=== PATIENT | female | born 1995 | race Caucasian/White ===

== ENCOUNTER 2019-09-24 01:12 | Emergency (ER) | payer BC, OTHER ==
--- OUTSIDE RECORDS SUMMARY | 2019-09-24 01:14 | XMS REPORT ---
:1995 [facility] Organization [facility] Address [address] [place] [address] Dr. Lay [address] [place] [address] Care Team Providers Name Role Phone Unavailable Unavailable Unavailable Problems This patient has no known problems. Allergies, Adverse Reactions, Alerts This patient has no known allergies or adverse reactions. Medications This patient has no known medications.
--- OUTSIDE RECORDS SUMMARY | 2019-09-24 01:15 | XMS REPORT | Summary of Care ---
:1995 Author Organization [facility] Address [address] [place] [address] Care Team Providers Name Role Phone Angélica Tinoco MD Primary Care Provider Reason for Visit Reason Comments New Medication Encounter Details Date Type Department Care Team Description 06/09/[address] [facility] Women's Amanda Mata, New Medication [facility]- [address], [facility] [address] [place] [address] [place] [address] [place] [phone] Allergies Active Allergy Reactions Severity Noted Date Comments Adhesive Tape-Silicones Rash Medium 10/01/2018 Amoxicillin Hives, Swelling 11/10/2015 Latex Rash 03/01/2016 Sulfa (Sulfonamide Antibiotics) Rash, Swelling 03/08/2016 documented as of this encounter (statuses as of 06/09/2019) Medications Medication Sig Dispensed Refills Start Date End Date Status [id number] Take 1 Dose by 30 Each 6 08/16/2018 Active carb,svs-MT-udo-dha mouth daily. (CITRANATAL ASSURE) 35 mg iron-1 mg -50 mg-300 mg combo pack acetaminophen (TYLENOL) Take by mouth. 0 Active 325 mg Cap fluconazole (DIFLUCAN) Take 1 tablet 1 tablet 0 06/07/2019 Active 200 mg by mouth daily. tabletIndications: Yeast vaginitis metroNIDAZOLE (FLAGYL) Take 1 tablet 14 tablet 0 06/07/2019 06/14/2019 Active 500 mg by mouth 2 tabletIndications: BV (two) times (bacterial vaginosis) daily for 7 days. metroNIDAZOLE 500 mg Take 1 tablet 14 tablet 0 06/09/2019 Active tabletIndications: BV by mouth every (bacterial vaginosis) 12 (twelve) hours. fluconazole 200 mg Take 1 tablet 1 tablet 0 06/09/2019 06/10/2019 Active tabletIndications: by mouth daily Yeast vaginitis for 1 day. documented as of this encounter (statuses as of 06/09/2019) Active Problems Problem Noted Date Morbid obesity with body mass index of 40.0-49.9 03/13/2019 Complete miscarriage 08/23/2018 Thyroid antibody positive 07/16/2018 Overview: Thyroglobulin antibody positive 07/2018 B12 deficiency 07/16/2018 Low HDL (under 40) 07/16/2018 Chronic back pain 06/17/2018 Bilateral hip pain 06/17/2018 Obesity (BMI 30-39.9) 06/17/2018 Penicillin allergy 09/27/2016 Latex allergy status 09/27/2016 Immune to rubella 04/05/2016 Immune to varicella 04/05/2016 Atypical squamous cells of undetermined significance (ASCUS) on 11/22/2015 Papanicolaou smear of cervix Overview: Repeat 1 year History of cervical dysplasia 11/13/2015 Estimated Date of Delivery Comments Yes 06/19/2019 Based on Ultrasound documented as of this encounter (statuses as of 06/09/2019) Resolved Problems Problem Noted Date Resolved Date Liveborn infant, of [place] , born in hospital by 09/29/201605/02 vaginal delivery (spontaneous vaginal delivery) 09/29/2016 05/02/2017 Retained placenta w/o hemorrhage, delivered, current 09/29/2016 05/02/2017 hospitalization Threatened labor at term 09/28/2016 11/03/2016 Premature rupture of membranes (PROM), onset of labor within 09/28/201605/02 24 hours, antepartum, full term Supervision of high-risk with history of , 09/27/201611/03 third trimester Vaginal yeast infection 09/27/2016 06/17/2018 Group B Streptococcus carrier state affecting 09/21/2016 11/03/2016 Headache in , antepartum 08/12/2016 11/03/2016 30 weeks gestation of 08/12/2016 09/20/2016 Bacterial vaginosis 06/23/2016 06/17/2018 Vaginal discharge during in second trimester 06/23/2016 11/03/2016 Supervision of high-risk with history of , 05/31/201609/27 second trimester Supervision of high-risk with history of , 03/01/201605/31 first trimester Breast tenderness 11/13/2015 06/17/2018 Obesity affecting 11/10/2015 11/03/2016 High risk , antepartum 11/10/2015 11/03/2016 documented as of this encounter (statuses as of 06/09/2019) Immunizations Name Administration Dates Next Due Influenza Virus Vaccine 09/10/2015 Influenza Virus Vaccine Quad IM 3+ YRS 07/26/2016 TDAP (ADACEL) VACCINE 04/03/2019 Td 06/10/2010 Tdap 07/26/2016 documented as of this encounter Social History Tobacco Use Types Packs/Day Years Used Date Never Smoker Smokeless Tobacco: Never Used Alcohol Use Drinks/Week oz/Week Comments No 0 Standard drinks or equivalent 0.0 Estimated Date of Delivery Comments Yes 06/19/2019 Based on Ultrasound Sex Assigned at Date Recorded Not on file Job Start Date Occupation Industry Not on file Not on file Not on file Travel History Travel Start Travel End No recent travel history available. documented as of this encounter Last Filed Vital Signs Not on filedocumented in this encounter Plan of Treatment Date Type Specialty Care Team Description 06/12/2019 Routine Obstetrics & Tinoco, Angélica Pineda MD Visit Gynecology [address] [place] [address] [place] [address] [phone] Health Maintenance Due Date Last Done Comments HPV VACCINES (1 - Female 2008 3-dose series) INFLUENZA VACCINE 07/06/2019 06/30/2018, 07/26/2016, 09/10/2015 PAP SMEAR 11/03/2019 11/03/2016, 11/10/2015 DTaP,Tdap,and Td Vaccines (4 04/03/2029 04/03/2019, - Td) 07/26/2016, 06/10/2010 PNEUMOCOCCAL 0-64 YEARS Aged Out No longer eligible based COMBINED SERIES on patient's age to complete this topic documented as of this encounter Results Not on filedocumented in this encounter Visit Diagnoses Diagnosis BV (bacterial vaginosis) - Primary Vaginitis and vulvovaginitis, unspecified Yeast vaginitis Candidiasis of vulva and vagina documented in this encounter Insurance Payer Benefit Plan Subscriber ID Effective Dates Phone Address Type / Group [facility] [id number] 2019-Jose [phone] [address] PPO/POS - OUT OF nt 87 [id number] [place] [address] [facility] [id number] 2018-Pauline t [facility] [id number] 2016-Presen t documented as of this encounter
--- OUTSIDE RECORDS SUMMARY | 2019-09-24 01:15 | XMS REPORT | Summary of Care ---
:1995 Author Organization [facility] Address [address] [place] [address] Care Team Providers Name Role Phone Angélica Tinoco MD Primary Care Provider Reason for Visit Reason Comments Rx Concern/Question Encounter Details Date Type Department Care Team Description 06/06/2019 Telephone [facility] Women's Angélica Tinoco MD Rx Concern/Question Healthcare[address] [place] [address] [place] [address] [phone] Allergies Active Allergy Reactions Severity Noted Date Comments Adhesive Tape-Silicones Rash Medium 10/01/2018 Amoxicillin Hives, Swelling 11/10/2015 Latex Rash 03/01/2016 Sulfa (Sulfonamide Antibiotics) Rash, Swelling 03/08/2016 documented as of this encounter (statuses as of 06/06/2019) Medications Medication Sig Dispensed Refills Start Date End Date Status [id number]-[id number] Take 1 Dose by 30 Each 6 08/16/2018 Active carb,kas-IY-jzk-dha mouth daily. (CITRANATAL ASSURE) 35 mg iron-1 mg -50 mg-300 mg combo pack acetaminophen (TYLENOL) Take by mouth. 0 Active 325 mg Cap documented as of this encounter (statuses as of 06/06/2019) Active Problems Problem Noted Date Morbid obesity [...] as of this encounter (statuses as of 06/06/2019) Resolved Problems Problem Noted Date Resolved Date [...] as of this encounter (statuses as of 06/06/2019) Immunizations Name Administration Dates Next Due Influenza [...] & Tinoco, Angélica Pineda MD Visit Gynecology [address] [place] [address] DR. Obrien [place], [place] [phone] Health Maintenance Due Date Last Done Comments [...] Results Not on filedocumented in this encounter Insurance Payer Benefit Plan Subscriber ID Effective Dates Phone Address Type / Group [facility] [id number] 2019-Jose [phone] [address] PPO/POS - OUT OF nt 87 [id number] [place] [address] [place] [id number] 2018-Presen t [place] [id number] 2016-Presen t documented as of this encounter
--- OUTSIDE RECORDS SUMMARY | 2019-09-24 01:15 | XMS REPORT | Summary of Care ---
:[address] [facility] Address [address] [place] [address] Care Team Providers Name Role Phone Angélica Tinoco MD Primary Care Provider Reason for Visit Reason Comments ROUTINE VISIT Encounter Details Date Type Department Care Team Description 06/05/2019 Routine [facility] Women's Angélica Tinoco MD High-risk in third trimester (Primary Dx); Visit Healthcare- [address] [place] [address] 38 weeks gestation of ; Teri NORTON Vaginal discharge; [address] [place] [address], [place] [address] BV (bacterial vaginosis); [address] [place], [place] [phone] Allergies Active Allergy Reactions Severity Noted Date Comments Adhesive Tape-Silicones Rash Medium 10/01/2018 Amoxicillin Hives, Swelling 11/10/2015 Latex Rash 03/01/2016 Sulfa (Sulfonamide Antibiotics) Rash, Swelling 03/08/2016 documented as of this encounter (statuses as of 06/07/2019) Medications Medication Sig Dispensed Refills Start Date End Date Status [id number]-rnxt Take 1 Dose by 30 Each 6 08/16/2018 Active carb,ujx-JV-cis-dha mouth daily. (CITRANATAL ASSURE) 35 mg iron-1 [...] times (bacterial vaginosis) daily for 7 days. documented as of this encounter (statuses as of 06/07/2019) Active Problems Problem Noted Date Morbid obesity [...] as of this encounter (statuses as of 06/07/2019) Resolved Problems Problem Noted Date Resolved Date [...] as of this encounter (statuses as of 06/07/2019) Immunizations Name Administration Dates Next Due Influenza [...] of this encounter Last Filed Vital Signs Vital Sign Reading Time Taken Comments Blood Pressure 130/75 06/05/2019 2:40 PM CDT Pulse 99 06/05/2019 2:40 PM CDT Temperature 36.9 C (98.4 F) 06/05/2019 2:40 PM CDT Respiratory Rate 18 06/05/2019 2:40 PM CDT Oxygen Saturation - - Inhaled Oxygen Concentration - - Weight 94.3 kg (208 lb) 06/05/2019 2:40 PM CDT Height 152.4 cm (5') 06/05/2019 2:40 PM CDT Body Mass Index 40.62 06/05/2019 2:40 PM CDT documented in this encounter Progress Notes Angélica Tinoco MD - 06/05/2019 2:00 PM CDT Chief complaint: Chief Complaint Patient presents with ROUTINE VISIT HPI Denies contractions, vaginal bleeding, dysuria, or PIH symptoms. + active FM. ??? Vaginal discharge versus LOF. Short was wet this morning. Histories OB History Para Term AB Living 4 1 1 0 2 1 SAB TAB Ectopic Multiple Live Births 1 0 0 0 1 # Outcome Date GA Lbr Julius/2nd Weight Sex Delivery Anes PTL Lv 4 Current 3 SAB 08/16/18 2 Term 09/28/16 37w3d 3090 g M VAGINAL None N IGOR Complications: Retained placenta 1 AB 11/2015 7w0d Past Medical History: Diagnosis Date Allergic rhinitis Anxiety B12 deficiency 07/16/2018 Bacterial vaginosis 06/23/2016 Bilateral hip pain 06/17/2018 Chronic back pain 06/17/2018 History of UTI Low HDL (under 40) 07/16/2018 Obesity (BMI 30-39.9) 06/17/2018 Pap smear abnormality of cervix Right lower quadrant pain 11/13/2017 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 07/16/2018 Thyroglobulin antibody positive Thyroid antibody positive 07/16/2018 Thyroid disease Family History Problem Relation Age of Onset Thyroid Mother thyroid nodule Allergies Mother Arthritis Maternal Grandmother Heart Maternal Grandmother Hypertension Maternal Grandmother Other - see comments Maternal Grandmother Thyroid Diabetes Paternal Grandmother High cholesterol Paternal Grandmother Hypertension Paternal Grandmother Other - see comments Paternal Grandmother COPD Other - see comments Father Diverticulitis Asthma NoFHx defects NoFHx Breast Cancer NoFHx Colon Cancer NoFHx Ovarian Cancer NoFHx Uterine Cancer NoFHx Cancer NoFHx Depression NoFHx Genetic NoFHx Mental retardation NoFHx Neurological NoFHx Osteoporosis NoFHx Psychiatry NoFHx Family Status Relation Name Status Mo Alive MGMo PGMo Fa Alive NoFHx (Not Specified) Past Surgical History: Procedure Laterality Date CONIZATION CERVIX,LOOP ELECTRD DILATION AND CURETTAGE (SHX) 11/2015 Social History Socioeconomic History Marital status: Spouse name: Not on file Number of children: 0 Years of education: Not on file Highest education level: Not on file Occupational History Not on file Social Needs Financial resource strain: Not on file Food insecurity: Worry: Not on file Inability: Not on file Transportation needs: Medical: Not on file Non-medical: Not on file Tobacco Use Smoking status: Never Smoker Smokeless tobacco: Never Used Substance and Sexual Activity Alcohol use: No Alcohol/week: 0.0 oz Drug use: No Sexual activity: Yes Partners: Male control/protection: None Lifestyle Physical activity: Days per week: Not on file Minutes per session: Not on file Stress: Not on file Relationships Social connections: Talks on phone: Not on file Gets together: Not on file Attends worship service: Not on file Active member of club or organization: Not on file Attends meetings of clubs or organizations: Not on file Relationship status: Not on file Intimate partner violence: Fear of current or ex partner: Not on file Emotionally abused: Not on file Physically abused: Not on file Forced sexual activity: Not on file Other Topics Concern Service Not Asked Blood Transfusions No Caffeine Concern Not Asked Occupational Exposure Not Asked Hobby Hazards Not Asked Sleep Concern Not Asked Stress Concern Not Asked Weight Concern Not Asked Special Diet Not Asked Back Care Not Asked Exercise Not Asked Bike Helmet Not Asked Seat Belt Not Asked Self-Exams Not Asked Social History Narrative No domestic violence or abuse Exposure to cats - Litter box precaution given Pt states her worship preference is none Social History Substance and Sexual Activity Sexual Activity Yes Partners: Male control/protection: None Labs No new labs Radiology No new radiology. Allergies Candace is allergic to adhesive tape-silicones; amoxicillin; latex; and sulfa ( sulfonamide antibiotics). Medications Candace has a current medication list which includes the following prescription(s ): fluconazole, metronidazole, acetaminophen, and kdv50-hqje carb,glu-fa-dss- dha. Review of Systems Constitutional: Negative for chills, fatigue and fever. HENT: Negative for congestion, rhinorrhea, sneezing and sore throat. Eyes: Negative for photophobia and visual disturbance. Respiratory: Negative for cough, chest tightness, shortness of breath and wheezing. Cardiovascular: Negative for chest pain and palpitations. Gastrointestinal: Negative for abdominal distention, abdominal pain, constipation, diarrhea, nausea and vomiting. Genitourinary: Negative for dysuria, urgency, frequency and vaginal bleeding. Skin: Negative for rash. Neurological: Negative for syncope and headaches. Hematological: Does not bruise/bleed easily. BP 130/75 (BP Location: Left arm, Patient Position: Sitting, BP CUFF SIZE: Adult Medium) | Pulse 99 | Temp 36.9 C (98.4 F) (Oral) | Resp 18 | Ht 5' (1.524 m) | Wt 208 lb (94.3 kg) | LMP 07/02/2018 | BMI 40.62 kg/m Pregravid BMI: 38.3 Physical Exam Vitals reviewed. Constitutional: She is oriented to person, place, and time. Her body habitus is obese. Cardiovascular: Regular rate and rhythm. Pulmonary/Chest: Normal inspiratory effort. Abdominal: Abdomen is soft. No tenderness present. No hernia palpated or inspected. DVP > 2 cm Neuro/Psychiatric: She has a normal mood and affect. She is oriented to person, place, and time. Skin: Skin normal. No rash present. Vagina:Vaginal discharge (moderate amount of discharge, thick whitish mixed with thin mucous) found. Negative ferning, nitrazine, pooling, and valsalva Assessment/Plan See OB Summary Return to clinic in 1 weeks. Reviewed patient instructions and provided printed copy. Activity restrictions: As tolerated at 38w2d This visit did not involve counseling and coordination that comprised more than 50% of the visit time. Angélica Tinoco MD 06/07/2019 4:40 PM documented in this encounter Plan of Treatment Date Type Specialty Care Team Description 06/12/2019 Routine Obstetrics & Angélica Tinoco MD Visit Gynecology [address] [place] [address] DR. Obrien [place], [place] [address] Health Maintenance Due Date Last Done Comments HPV VACCINES (1 - Female 2008 3-dose series) INFLUENZA VACCINE 07/06/2019 06/30/2018, 07/26/2016, 09/10/2015 PAP SMEAR 11/03/2019 11/03/2016, 11/10/2015 DTaP,Tdap,and Td Vaccines (4 04/03/2029 04/03/2019, - Td) 07/26/2016, 06/10/2010 PNEUMOCOCCAL 0-64 YEARS Aged Out No longer eligible based COMBINED SERIES on patient's age to complete this topic documented as of this encounter Procedures Procedure Name Priority Date/Time Associated Comments Diagnosis GALV ONLY - VAGINAL Routine 06/05/2019 3:14 PM Vaginal discharge Results for this PATHOGENS BY DNA CDT procedure are in PROBE the results section. POCT URINALYSIS W/O Routine 06/05/2019 38 weeks gestation Results for this SPECIFIC GRAVITY of procedure are in the results section. documented in this encounter Results GALV ONLY - VAGINAL PATHOGENS BY DNA PROBE (06/05/2019 3:14 PM CDT) Trichomonas vaginalis Negative Negative [facility] Gardnerella vaginalis Positive (A) Negative [facility] Tania species Positive (A) Negative [facility] Specimen Fluid - VAGINA Performing Organization Address City/State/Zipcode Phone Number [facility] CLIA: [id number], [address] [place], [place] [address] [facility] POCT URINALYSIS W/O SPECIFIC GRAVITY (06/05/2019) POCT PH U N/A 5 - 8 mg/dl POCT U LEUK EST N/A Negative - Negative POCT U NIT N/A Negative - Negative POCT U PROT Negative Negative - Negative POCT U GLU Negative Negative - Negative POCT U KETONE N/A Negative - Negative POCT U BLD N/A Negative - Negative Specimen Urine - URINE, CLEAN CATCH documented in this encounter Visit Diagnoses Diagnosis High-risk in third trimester - Primary 38 weeks gestation of state, incidental Vaginal discharge Leukorrhea, not specified as infective BV (bacterial vaginosis) Vaginitis and vulvovaginitis, unspecified Yeast vaginitis Candidiasis of vulva and vagina documented in this encounter Insurance Payer Benefit Plan Subscriber ID Effective Dates Phone Address Type / Group [facility] [id number] 2019-Jose [phone] [address] PPO/POS - OUT OF nt 87 [id number] [place] [address] [place] [facility] [id number] 2018-Pauline calderón documented as of this encounter"
--- OUTSIDE RECORDS SUMMARY | 2019-09-24 01:16 | XMS REPORT | Summary of Care ---
:1995 Author Organization [facility] Address [address] [place] [address] Care Team Providers Name Role Phone Angélica Tinoco MD Primary Care Provider Reason for Visit Reason Comments Care Encounter Details Date Type Department Care Team Description 07/10/2019 Routine [facility] Women's Vanaphan, Amanda, care and Visit Healthcare- PA-C examination (Primary [address] Dx) [address] [facility] [place] [id number] [phone] Allergies Active Allergy Reactions Severity Noted Date Comments Adhesive Tape-Silicones Rash Medium 10/01/2018 Amoxicillin Hives, Swelling 11/10/2015 Latex Rash 03/01/2016 Sulfa (Sulfonamide Antibiotics) Rash, Swelling 03/08/2016 Vancomycin Hives 06/10/2019 documented as of this encounter (statuses as of 07/10/2019) Medications Medication Sig Dispensed Refills Start Date End Date Status vitamin w/FA Take 1 tablet by 100 tablet 3 06/12/2019 Active tabletIndications: mouth daily. Liveborn , of beach , born in hospital by vaginal delivery, Morbid obesity with body mass index of 40.0-49.9, Labor and delivery, indication for care, Normal labor and delivery docusate calcium 240 Take 1 capsule by 30 capsule 1 06/12/2019 Active mg mouth once daily capsuleIndications: as needed for Liveborn , of Constipation. beach , born in hospital by vaginal delivery, Morbid obesity with body mass index of 40.0-49.9, Labor and delivery, indication for care, Normal labor and delivery ferrous sulfate 325 Take 1 tablet by 30 tablet 2 06/12/2019 Active mg (65 mg iron) mouth daily. tabletIndications: Liveborn infant, of beach , born in hospital by vaginal delivery, Morbid obesity with body mass index of 40.0-49.9, Labor and delivery, indication for care, Normal labor and delivery ibuprofen 600 mg Take 1 tablet by 30 tablet 1 06/12/2019 Active tabletIndications: mouth every 6 Liveborn , of (six) hours as beach , needed for Pain born in hospital by (scale 1-3) or vaginal delivery, Pain (scale 4-6) Morbid obesity with (Pain). Take with body mass index of food or milk. 40.0-49.9, Labor and delivery, indication for care, Normal labor and delivery documented as of this encounter (statuses as of 07/10/2019) Active Problems Problem Noted Date Labor and delivery, indication for care 06/10/2019 Normal labor and delivery 06/10/2019 Morbid obesity with body mass index of 40.0-49.9 03/13/2019 Complete miscarriage 08/23/2018 Thyroid antibody positive 07/16/2018 Overview: Thyroglobulin antibody positive 07/2018 B12 deficiency 07/16/2018 Low HDL (under 40) 07/16/2018 Chronic back pain 06/17/2018 Bilateral hip pain 06/17/2018 Obesity (BMI 30-39.9) 06/17/2018 Liveborn , of beach , born in hospital by vaginal 2015 delivery Penicillin allergy 09/27/2016 Latex allergy status 09/27/2016 Immune to rubella 04/05/2016 Immune to varicella 04/05/2016 Atypical squamous cells of undetermined significance (ASCUS) on 11/22/2015 Papanicolaou smear of cervix Overview: Repeat 1 year History of cervical dysplasia 11/13/2015 documented as of this encounter (statuses as of 07/10/2019) Resolved Problems Problem Noted Date Resolved Date (spontaneous vaginal delivery) 09/29/2016 05/02/2017 Retained placenta [...] as of this encounter (statuses as of 07/10/2019) Immunizations Name Administration Dates Next Due Influenza Virus Vaccine 09/10/2015 Influenza Virus Vaccine Quad IM 3+ YRS 07/26/2016 TDAP (ADACEL) VACCINE 04/03/2019 Td 06/10/2010 Tdap 07/26/2016 documented as of this encounter Social History Tobacco Use Types Packs/Day Years Used Date Never Smoker Smokeless Tobacco: Never Used Alcohol Use Drinks/Week oz/Week Comments No 0 Standard drinks or equivalent 0.0 Sex Assigned at Date Recorded Not on file Job Start Date Occupation Industry Not on file Not on file Not on file Travel History Travel Start Travel End No recent travel history available. documented as of this encounter Last Filed Vital Signs Vital Sign Reading Time Taken Comments Blood Pressure 114/72 07/10/2019 3:48 PM CDT Pulse 70 07/10/2019 3:48 PM CDT Temperature 36.8 C (98.3 F) 07/10/2019 3:48 PM CDT Respiratory Rate 18 07/10/2019 3:48 PM CDT Oxygen Saturation - - Inhaled Oxygen Concentration - - Weight 82.1 kg (181 lb) 07/10/2019 3:48 PM CDT Height 152.4 cm (5') 07/10/2019 3:48 PM CDT Body Mass Index 35.35 07/10/2019 3:48 PM CDT documented in this encounter Patient Instructions Patient InstructionsYamileth Flakita WILFREDO Segal - 07/10/2019 3:00 PM CDT After Giving : Changing Expectations for Parents Outings with your baby will help form new family bonds. Congratulations on your new baby! Diapers wont be the only thing youll change in the months ahead. Your sense of yourself and how you relate to your partner will also be different. If you have other children, expect some emotional swings, as you and your family try out your new roles. Not always gabe Most new mothers experience some form of the baby blues. These mood swings are caused by hormonal shifts in your body. Stress due to the recent changes in your life and lack of sleep also have an effect. The baby blues may last a few days or up to 2 weeks. You may feel a sense of loss, frustration, oranger. Or you may be sad that having a baby isnt what youd imagined. Sometimes a triggers childhood memories or reminds you about the of a loved one. Balancing the blues Recognize your need to talk, to feel protected, to have private time. Allow yourself to cry, to sit,to think. Ask for help when you need it, and accept help when its offered. Knowing your needs is not a weakness. Share your thoughts with your partner. Or medicinal plant picker the phone and call a friend, your mother , a sister, or an aunt. Rest, eat right, and get some light exercise. The mind feels best when the body feels good. Shaping your family Over the next year, your household will go through many changes. If this is your first child, you and your partner will have to adjust to the idea of being a family. If you have older children, help them adjust to the new baby. Sharing chores, time, and attention is something youll all need to workon. If you re a single mother, you may find that your baby has a family of friends as well as relatives. Share activities As a , your baby has many needs. These must be blended into the family s style. Take the baby on outings, so he or she is part of the family from the beginning. Involve everyone in activities you all can enjoy doing together. As parents and lovers The demands on your relationship have just increased. So do your best to strengthen your partnershipties. Set aside time to talk every day. Put away the dinner dishes together or take a break before bedtime. Also, try to spend time alone. It will help you remember why youre together. Return to sexwhen it feels right and its OK with your healthcare provider. But dont think of as a form of control. Instead, talk with your healthcare provider about control methods that might be right for this time in your life. When to call your healthcare provider Call your healthcare provider if you have any of the following concerns: You dont want to be with the baby. You have no interest in eating or are not able to sleep. Your symptoms are not getting better, and youre getting more upset. You think you may harm yourself or the baby. The Depression After Delivery hotline (583-016-2652) may also be helpful. Date Last Reviewed: 12/06/201719995330-5497 [employer]. [address] [place] [address]. All rights reserved. This information is not intended as a substitute for professional medical care. Always follow your healthcare professional's instructions. After Giving : How to Feel Healthy Helping yourself feel fit is one of the best things you can do for your baby. A little exercise willtone your muscles. Youll feel stronger and more energized. Youll also feel more awake and aware. Dont worry about your weight right now. Your goal is to feel healthy. Part of feeling good is dressing for comfort. If you dress smart, you can be a busy new mom and still look great. Continue Kegel exercises You may have been told to do Kegel exercises during . These exercises strengthen the muscles that are strained by carrying and delivering the baby. You can return to your Kegels as soon as youfeel ready. Why not start today? Squeeze your pelvic floor muscles (the ones that control your urinestream) for at least 5 seconds. Relax, then squeeze again. Work your way up to 50 or 100 Kegels a day. Exercise often Exercise helps you get in shape. It also strengthens your muscles, so you are better fit for liftingthe baby. As an added benefit, exercise gives you a sense that youre doing something good for yourself. Take your baby for a short walk , or spend 10 minutes stretching. If you were active during , you can probably begin light exercise as soon as you feel ready. But be sure to check with your healthcare provider before you begin. Stay off the scale For the first month, think about regaining energy and feeling good, not about losing weight. Losing weight too soon can make you feel more tired. Instead, focus on caring for your baby and eating balanced meals. You may lose some weight without even trying, especially if youre . Once your energy level isback to normal, you can begin to lose weight. A gradual weight loss of 4 or 5 pounds a month is safest. Dress smart Youll want to be comfortable during the first days after delivery. Wear a robe, pajamas, or sweats whatever feels best. Soon you may want to look more like your pre self. Do your hair and wear makeup, if you normally do. A loose-fitting dress may feel good. But do yourself a favor: Dont reach for your jeans. Its likely to be a month or more before you can wear them. If leaking breasts are a problem, put pads inside your bra and dress in layers. If youre , shirts that open in front or pullover tops are good choices. A scarf or shawl can be used as a drape if you breastfeed when others are present. When to call your healthcare provider Remember to schedule your visit. If you delivered by , be seen within 2 weeks. For vaginal delivery, be seen 4 to 6 weeks after the . Also, call your healthcare provider if you have: Heavy bleeding Fever Redness or persistent lump in breasts Inabilityto void or have a bowel movement after 1 week Severe pain Worsening depression Date Last Reviewed: 12/06/201719996130-5338 [employer]. [address] [place] [address], [place] [address]. All rights reserved. This information is not intended as a substitute for professional medical care. Always follow your healthcare professional's instructions. documented in this encounter Progress Notes Amanda Mata PA-C - 07/10/2019 3:00 PM CDT Candace Mccloud is a 23 year old female s/p vaginal delivery on 06/10/19 presents for pp visit. without issues. Denies blues or depressive symptoms. Denies intercourse.Currently vaginal spotting. 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 30 tablet 2 vitamin w/FA tablet Take 1 tablet by mouth daily. 100 tablet 3 docusate calcium 240 mg capsule Take 1 capsule by mouth once daily as needed for Constipation. 30 capsule 1 ibuprofen 600 mg tablet Take 1 tablet by mouth every 6 (six) hours as needed for Pain (scale 1-3) or Pain (scale 4-6) (Pain). Take with food or milk. 30 tablet 1 No current facility-administered medications on file prior to visit. Family History Problem Relation Age of Onset [...] NoFHx Neurological NoFHx Osteoporosis NoFHx Psychiatry NoFHx Social History Socioeconomic History Marital status: Spouse [...] file Gets together: Not on file Attends restoration service: Not on file Active member of [...] Litter box precaution given Pt states her restoration preference is none ROS: no fever, no chills, no chest pain, no SOB, no abdominal pain, no vaginal discharge, no dysuria BP: (114)/(72) Temp: [36.8 C (98.3 F)] Temp source: Oral (07/10 1548) Pulse: [70] Resp: [18] SpO2: -- Height: [5' (152.4 cm)] Weight: [181 lb (82.1 kg)] BMI (calculated): [35.35] NAD, EPDS- 4 Breathing unlabored Breasts: No engorgement Abdomen: Incision low transverse well-healed. No tenderness or masses. No hernia. Pelvic: Perineum well healed Bimanual: Uterus well involuted, nontender. Adnexa without tenderness or masses A/P: Pelvic rest and no heavy lifting x 2 weeks. Discussed contraception as below: Return for Well Woman exam in 6 months Call for any questions or concerns care and examination (primary encounter diagnosis) Doing well, patient to follow-up in 6 months for WWE. Amanda Mata PA-C 07/10/2019 4:07 PM documented in this encounter Plan of Treatment Date Type Specialty Care Team Description 01/08/2020 Office Visit Obstetrics & Gynecology Amanda Mata PA-C [address] [place] [phone] Health Maintenance Due Date Last Done Comments HPV VACCINES (1 - Female 2008 3-dose series) INFLUENZA VACCINE (#1) 2019 06/30/2018, 07/26/2016, 09/10/2015 PAP SMEAR 11/03/2019 11/03/2016, 11/10/2015 DTaP,Tdap,and Td Vaccines (4 04/03/2029 04/03/2019, - Td) 07/26/2016, 06/10/2010 PNEUMOCOCCAL 0-64 YEARS Aged Out No longer eligible based COMBINED SERIES on patient's age to complete this topic documented as of this encounter Results Not on filedocumented in this encounter Visit Diagnoses Diagnosis care and examination - Primary Routine follow-up documented in this encounter Insurance Payer Benefit Plan Subscriber ID Effective Dates Phone Address Type / Group KENYATTA YOU [facility] [id number] 2018-Pauline calderón [facility] [id number] 2019-Jose [phone] [address] PPO/POS - OUT OF [id number] [place] [address] documented as of this encounter
--- OUTSIDE RECORDS SUMMARY | 2019-09-24 01:16 | XMS REPORT | Summary of Care ---
:1995 Author Organization [facility] Address [address] [place] [phone] Care Team Providers Name Role Phone Angélica Tinoco MD Primary Care Provider Reason for Visit Reason Comments Care Encounter Details Date Type Department Care Team Description 07/10/2019 Routine [facility] Women's Vanaphan, Amanda, care and Visit Healthcare- PA-C examination (Primary [address] Dx) [address] [facility] [place] [phone] Allergies Active Allergy Reactions Severity Noted Date [...] Share your thoughts with your partner. Or picker/puller the phone and call a friend, your [...] the baby. The Depression After Delivery hotline (578-575-3099) may also be helpful. Date Last Reviewed: 12/06/201719998563-8889 [employer]. [address] [place] [address]. All rights reserved. This information is not [...] Severe pain Worsening depression Date Last Reviewed: 12/06/201719990082-9585 [employer]. [address] [place] [address], [place] [address]. All rights reserved. This information is not [...] file Gets together: Not on file Attends baptism service: Not on file Active member of [...] Litter box precaution given Pt states her baptism preference is none ROS: no fever, no [...] documented in this encounter Plan of Treatment Health Maintenance Due Date Last Done Comments [...] Phone Address Type / Group KENYATTA YOU [facility] [id number] 2018-Pauline [facility]derón [facility] [id number] 2019-Jose [phone] [address] PPO/POS - OUT OF [id number] [place] [address] documented as of this encounter
--- OUTSIDE RECORDS SUMMARY | 2019-09-24 01:16 | XMS REPORT | Summary of Care ---
:1995 Author Organization [facility] - [facility] Address [address] [place] [address] Care Team Providers Name Role Phone Angélica Tinoco MD Primary Care Provider Reason for Referral (Routine) Status Reason Specialty Diagnoses / Referred By Referred To Procedures Contact Contact New Request Diagnoses Liveborn infant, of beach , born in hospital by vaginal delivery Morbid obesity with body mass index of 40.0-49.9 Labor and delivery, indication for care Normal labor and delivery Angélica Tinoco MD Lam, Vien Cam, MD Procedures DISCHARGE FOLLOW-UP: PRIVATE PHYSICIAN [address] [place] [address] DR[address] [facility] [address] [place] [address] Phone: Reason for Visit Auth/Cert Status Reason Specialty Diagnoses / Procedures Referred By Contact Referred To Contact Obstetrics Diagnoses contraction Adc Labor And Delivery [address] [place] [address] [place] [address] Encounter Details Date Type Department Care Team Description 06/10/2019 - Hospital Encounter ADC Labor and nAgélica Tinoco, Liveborn , of 06/12/2019 Delivery Unit MD beach [address] [place] [address] , [facility] [place] [address] delivery [phone] [place] [address] [phone] Allergies Active Allergy Reactions Severity Noted Date Comments Adhesive Tape-Silicones Rash Medium 10/01/2018 Amoxicillin Hives, Swelling 11/10/2015 Latex Rash 03/01/2016 Sulfa (Sulfonamide Antibiotics) Rash, Swelling 03/08/2016 Vancomycin Hives 06/10/2019 documented as of this encounter (statuses as of 06/12/2019) Medications Medication Sig Dispensed Refills Start Date End Date Status vitamin Take 1 tablet 100 tablet 3 06/12/2019 Active w/FA by mouth tabletIndications: daily. Liveborn infant, of beach , born in hospital by vaginal delivery, Morbid obesity with body mass index of 40.0-49.9, Labor and delivery, indication for care, Normal labor and delivery docusate calcium Take 1 30 capsule 1 06/12/2019 Active 240 mg capsule by capsuleIndications: mouth once Liveborn infant, of daily as beach needed for , born in [facility]. hospital by vaginal delivery, Morbid obesity with body mass index of 40.0-49.9, Labor and delivery, indication for care, Normal labor and delivery ferrous sulfate 325 Take 1 tablet 30 tablet 2 06/12/2019 Active mg (65 mg iron) by mouth tabletIndications: daily. Liveborn , of beach , born in hospital by vaginal delivery, Morbid obesity with body mass index of 40.0-49.9, Labor and delivery, indication for care, Normal labor and delivery ibuprofen 600 mg Take 1 tablet 30 tablet 1 06/12/2019 Active tabletIndications: by mouth Liveborn , of every 6 (six) beach hours as , born in needed for hospital by vaginal Pain (scale delivery, Morbid 1-3) or Pain obesity with body (scale 4-6) mass index of (Pain). Take 40.0-49.9, Labor with food or and delivery, milk. indication for care, Normal labor and delivery [id number] Take 1 Dose 30 Each 6 08/16/2018 06/12/2019 Discontinued carb,ovo-IJ-oan-dha by mouth (CITRANATAL ASSURE) daily. 35 mg iron-1 mg -50 mg-300 mg combo pack acetaminophen Take by 0 06/12/2019 Discontinued (TYLENOL) 325 mg mouth. Cap fluconazole Take 1 tablet 1 tablet 0 06/07/2019 06/12/2019 Discontinued (DIFLUCAN) 200 mg by mouth tabletIndications: daily. Yeast vaginitis metroNIDAZOLE Take 1 tablet 14 tablet 0 06/07/2019 06/12/2019 Discontinued (FLAGYL) 500 mg by mouth 2 tabletIndications: (two) times BV (bacterial daily for 7 vaginosis) days. metroNIDAZOLE 500 Take 1 tablet 14 tablet 0 06/09/2019 06/12/2019 Discontinued mg by mouth tabletIndications: every 12 BV (bacterial (twelve) vaginosis) hours. fluconazole 200 mg Take 1 tablet 1 tablet 0 06/09/2019 06/12/2019 Discontinued tabletIndications: by mouth Yeast vaginitis daily for 1 day. documented as of this encounter (statuses as of 06/12/2019) Active Problems Problem Noted Date Labor and delivery, indication for care 06/10/2019 Normal labor and delivery 06/10/2019 Morbid obesity with body mass index of 40.0-49.9 03/13/2019 Complete miscarriage 08/23/2018 Thyroid antibody positive 07/16/2018 Overview: Thyroglobulin antibody positive 07/2018 B12 deficiency 07/16/2018 Low HDL (under 40) 07/16/2018 Chronic back pain 06/17/2018 Bilateral hip pain 06/17/2018 Obesity (BMI 30-39.9) 06/17/2018 Liveborn infant, of beach , born in hospital by vaginal 2015 delivery Penicillin allergy 09/27/2016 Latex allergy status 09/27/2016 Immune to rubella 04/05/2016 Immune to varicella 04/05/2016 Atypical squamous cells of undetermined significance (ASCUS) on 11/22/2015 Papanicolaou smear of cervix Overview: Repeat 1 year History of cervical dysplasia 11/13/2015 documented as of this encounter (statuses as of 06/12/2019) Resolved Problems Problem Noted Date Resolved Date [...] as of this encounter (statuses as of 06/12/2019) Immunizations Name Administration Dates Next Due Influenza [...] Sign Reading Time Taken Comments Blood Pressure 101/52 06/12/2019 7:23 AM CDT Pulse 61 06/12/2019 7:23 AM CDT Temperature 36.7 C (98 F) 06/12/2019 7:23 AM CDT Respiratory Rate 16 06/12/2019 7:23 AM CDT Oxygen Saturation 100% 06/12/2019 7:23 AM CDT Inhaled Oxygen Concentration - - Weight 94.3 kg (208 lb) 06/10/2019 3:14 AM CDT Height 152.4 cm (5') 06/10/2019 3:14 AM CDT Body Mass Index 40.62 06/10/2019 3:14 AM CDT documented in this encounter Discharge Summaries Angélica Tinoco MD - 06/12/2019 6:57 AM CDT PP D/C SUMMARY ADMIT DATE: 06/10/2019 DISCHARGE DATE: 06/12/2019 ADMIT ATTENDING: Angélica Tinoco MD ATTENDING MD AT DISCHARGE: Angélica Tinoco MD REASON FOR ADMISSION: Term in active labor @ 38 wks FINAL DIAGNOSIS: S/P Vaginal Delivery SECONDARY DIAGNOSIS: Principal Problem: Liveborn , of beach , born in hospital by vaginal delivery (09/29/2016) POA: Unknown Active Problems: Morbid obesity with body mass index of 40.0-49.9 (03/13/2019) POA: Yes Labor and delivery, indication for care (06/10/2019) POA: Yes Normal labor and delivery (06/10/2019) POA: Yes PRINCIPAL PROCEDURE: Cephalic vaginal delivery ADDITIONAL PROCEDURES: None SIGNIFICANT LAB/X-RAYS: WBC (10*3/L) Date Value 06/11/2019 7.62 06/10/2019 10.96 05/27/2019 8.95 HGB (g/dL) Date Value 06/11/2019 10.7 (L) 06/10/2019 12.1 05/27/2019 11.4 (L) HCT (%) Date Value 06/11/2019 33.9 (L) 06/10/2019 37.7 05/27/2019 36.0 PLT (10*3/L) Date Value 06/11/2019 171 06/10/2019 206 05/27/2019 207 HOSPITAL COURSE: Briefly, Candace Mccloud is a 23 year old who was admitted to [facility] on 2018 for active labor at38 wks. She underwent a Cephalic vaginal delivery. She was ambulating, tolerating a regular diet with good pain control on day # 1. The patient is medically stable for discharge home to thecare of her family with care instructions reviewed and with home meds prescribed. She is to follow-up in clinic as directed. CONDITION: Good DIET: Regular ACTIVITY: Physical activities as tolerated. Pelvic rest x 6-8 weeks . DISCHARGE MEDICATIONS: Candace Mccloud Home Medication Instructions KEVIN:[id number] Printed on:06/12/19 0657 Medication Information docusate calcium 240 mg capsule Take 1 capsule by mouth once daily as needed for Constipation. ferrous sulfate 325 mg (65 mg iron) tablet Take 1 tablet by mouth daily. ibuprofen 600 mg tablet Take 1 tablet by mouth every 6 (six) hours as needed for Pain (scale 1-3) or Pain (scale 4-6) (Pain). Take with food or milk. vitamin w/FA tablet Take 1 tablet by mouth daily. WOUND CARE: The patient was instructed to keep delivery lacerations (if any) clean and dry with soap and water in shower, dry gently with clean towel. She was instructed to return to ER if Temp > 101F, foul-smelling vaginal discharge, headache unresolved with pain medications, visual disturbances including double or blurry vision, seeing spots, upper abdominal pain, or vaginal bleeding greater than 1 pad perhour. Pelvic rest 4-6 weeks, and no heavy lifting. DISCHARGE: Home FOLLOW-UP APPOINTMENT: With [facility] for check. Angélica Tinoco MD 06/12/2019 6:57 AM documented in this encounter Discharge Instructions Herlinda Frost RN - 06/12/2019RETURN TO HOSPITAL FOR ANY CONCERNS [facility] PARENT [facility]WNERS MANUAL GIVEN FOLLOW UP IN ONE, OR 4-6 WEEKS WITH YOUR DOCTOR DISCUSS CONTROL OPTIONS WITH YOUR DOCTOR IF NEEDED NO SEX, NO TAMPONS, NO DOUCHING NO SWIMMING OR TUB BATHS, TAKE SHOWERS INSTEAD NO HEAVY LIFTING, PULLING, OR PUSHING (>10LBS) DRINK AT LEAST EIGHT (8oz) GLASSES WATER DAILY EAT HEALTHY DIET INCLUDING FRESH FRUITS, VEGETABLES, AND PROTEINS AVOID FRIED, GREASY, FATTY, SUGARY, AND SPICY FOODS TAKE MEDICATIONS PRESCRIBED AND FOLLOW LABEL PRECAUTIONS & INSTRUCTIONS DO NOT DRIVE WHILE TAKING PAIN MEDICINE TAKE OVER THE COUNTER STOOL SOFTENERS TO HELP PREVENT CONSTIPATION [facility] REFERRAL HANDOUT GIVEN AttachmentsThe following attachments cannot be sent through Care Everywhere.After a Vaginal ([facility]), Breast Care After ([facility]) Depression, Understanding ([facility])When to Call the Healthcare Provider, After Delivery ([facility])documented in this encounter Progress Notes Angélica Tinoco MD - 06/11/2019 8:32 AM CDT PROGRESS NOTE Subjective: Patient is a 23 year old, S/P , post day 1. She complains of nothing. Objective: Vital Signs: BP: (110-125)/(58-77) Temp: [36.6 C (97.9 F)-36.9 C (98.4 F)] Temp source: Oral (06/11 0745) Pulse: [64-83] Resp: [16-17] SpO2: [99 %] Height: -- Weight: -- BMI (calculated): -- Physical Exam: General: NAD Lungs: clear to auscultation bilaterally Cardiology: regular rate and rhythm Abdomen: Soft, NTTP, fundus firm and below umbilicus Extremities: no clubbing, cyanosis, or edema Current Medications: Current Facility-Administered Medications Medication Dose Route Frequency Last Rate Last Dose benzocaine-menthol (DERMOPLAST) 20-0.5 % topical spray Topical PRN diphenhydrAMINE (BENADRYL) tablet 25 mg 25 mg Oral Q6HPRN docusate calcium (SURFAK) capsule 240 mg 240 mg Oral QDAILYPRN 240 mg at 06/11/19 0759 HYDROcodone-acetaminophen (NORCO 5) 5-325 mg tablet 1 tablet 1 tablet Oral Q6HPRN ibuprofen (IBU) tablet 600 mg 600 mg Oral Q6HPRN 600 mg at 06/11/19 0022 magnesium hydroxide (MILK OF MAGNESIA) 400 mg/5 mL suspension 30 mL 30 mL Oral QDAILYPRN ondansetron (ZOFRAN (PF)) injection 4 mg 4 mg Slow IV Push Q8HPRN vitamin w/FA (PRENATABS RX) tablet 1 tablet 1 tablet Oral DAILY 1 tablet at 759 Labs: CBC BMP MAGNESIUM WBC (10*3/L) Date Value 06/11/2019 7.62 NA (mmol/L) Date Value 07/10/2018 138 No results found for: MG PLT (10*3/L) Date Value 06/11/2019 171 K (mmol/L) Date Value 07/10/2018 4.3 HGB (g/dL) Date Value 06/11/2019 10.7 (L) CALCIUM (mg/dL) Date Value 07/10/2018 9.3 HCT (%) Date Value 06/11/2019 33.9 (L) CL (mmol/L) Date Value 07/10/2018 103 TYPE & RH BUN (mg/dL) Date Value 07/10/2018 17 ABO & RH (no units) Date Value 06/10/2019 O Positive CREATININE (mg/dL) Date Value 07/10/2018 0.80 Type & Screen Rubella Varicella ABO & RH (no units) Date Value 06/10/2019 O Positive Rubella screen IgG (no units) Date Value 11/11/2018 Negative No results found for: VZVG No results found for: TSABINT Hep B HIV Syphilis No results found for: HBS No results found for: HIV No results found for: SYPG Group B Strep Chlamydia B STREP SCREEN (no units) Date Value 05/27/2019 Streptococcus agalactiae (Group B) C. trachomatis Nucleic Acid (no units) Date Value 05/20/2019 Negative Assessment/Plan: PPD#1 - Doing well - Anticipate discharge tomorrow as baby will stay in house amalia Tinoco MD 06/11/2019 7:25 PM Leyda Langley RN - 06/10/2019 3:25 AM [id number], EDC on 06/19/2019, 38 weeks intrauterine . Patient is ambulatory came in with complaint of contractions and vaginal bleeding. Patient denies leakage of fluid. Assisted to room, gown and external monitor applied. Patient can't void, no UDIP done. Vital signs: BP 132/68 mmHg, 97.5F, 94bpm, and RR18. Patient is devi every 2-3 minutes. Rate her pain at 8 out of 10. Cervix is 7, 90%, bulging bag. Report given to Dr. Tinoco and ordered to admit patient for labor and delivery. Associated attestation - Angélica Tinoco MD - 06/10/2019 8:03 AM CDTPlease see my H&P for more details Angélica Tinoco MD 06/10/2019 8:03 AM documented in this encounter Plan of Treatment Date Type Specialty Care Team Description 07/10/2019 Routine Obstetrics & Amanda Mata, Visit Gynecology PAFrank [address] [place] [phone] Name Type Priority Associated Diagnoses Order Schedule RHO (D) Immune Globulin LAB Routine ONCE for 1 Occurrences starting 06/10/2019 until 06/10/2019 Health Maintenance Due Date Last Done Comments [...] Procedure Name Priority Date/Time Associated Comments Diagnosis CBC WITH DIFFERENTIAL Routine 06/11/2019 4:43 Results for this AM CDT procedure are in the results section. CBC WITH DIFF Routine 06/11/2019 4:43 Results for this AM CDT procedure are in the results section. VENOUS CORD GAS Routine 06/10/2019 4:14 Results for this AM CDT procedure are in the results section. ARTERIAL CORD GAS Routine 06/10/2019 4:14 Results for this AM CDT procedure are in the results section. CBC WITH DIFFERENTIAL STAT 06/10/2019 3:32 Results for this AM CDT procedure are in the results section. ADC, CLC OR LCC ONLY STAT 06/10/2019 3:32 Results for this - HIV TYPE 1 AND 2 AM CDT procedure are in ANTIBODY SCREEN WITH the results P24 section. ADC OR STEFFI ONLY - VAN 06/10/2019 3:32 Results for this RPR AM CDT procedure are in the results section. TYPE AND SCREEN VAN 06/10/2019 3:32 Results for this AM CDT procedure are in the results section. HEPATITIS B SURFACE VAN 06/10/2019 3:32 Results for this ANTIGEN AM CDT procedure are in the results section. CBC WITH DIFF STAT 06/10/2019 3:32 Results for this AM CDT procedure are in the results section. VANCOMYCIN TROUGH Routine 06/10/2019 3:32 Results for this AM CDT procedure are in the results section. documented in this encounter Results CBC WITH DIFFERENTIAL (06/11/2019 4:43 AM CDT) WBC 7.62 4.30 - 11.10 [facility] 10*3/L HOSPITAL LABORATORY RBC 3.72 (L) 3.93 - 5.25 [facility] 10*6/L HOSPITAL LAB[facility] HGB 10.7 (L) 11.6 - 15.0 [facility] g/dL HOSPITAL [facility] HCT 33.9 (L) 35.7 - 45.2 % [facility] MCV 91.1 80.6 - 95.5 fL [facility] MCH 28.8 25.9 - 32.8 pg [facility] MCHC 31.6 31.6 - 35.1 [facility] g/dL [facility] RDW-SD 45.1 39.0 - 49.9 fL [facility] RDW-CV 13.7 12.0 - 15.5 % [facility] PLT 171 166 - 358 [facility] 10*3/L [facility] MPV 12.3 9.5 - 12.9 fL [facility] NRBC/100 WBC 0.0 0.0 - 10.0 /100 [facility] WBCs [facility] NRBC x10^3 <0.01 10*3/L [facility] GRAN MAT (NEUT) % 61.5 % [facility] IMM GRAN % 0.70 % [facility] LYMPH % 27.6 % [facility] MONO % 8.5 % [facility] EOS % 1.3 % [facility] BASO % 0.4 % [facility] GRAN MAT x10^3(ANC) 4.69 1.88 - 7.09 [facility] 10*3/uL HOSPITAL LAB[facility]ORY IMM GRAN x10^3 0.05 0.00 - 0.06 [facility] 10*3/uL H[facility]PITAL LAB[facility] LYMPH x10^3 2.10 1.32 - 3.29 [facility] 10*3/uL [facility]ITAL [facility] MONO x10^3 0.65 0.33 - 0.92 [facility] 10*3/uL HOSPITAL LAB[facility] EOS x10^3 0.10 0.03 - 0.39 [facility] 10*3/uL [facility]ITAL [facility] BASO x10^3 0.03 0.01 - 0.07 [facility] 10*3/uL [facility] Specimen Blood - ARM, LEFT Performing Organization Address [facility]/Zipcode Phone Number [facility] CLIA: [id number], [address] [place] [address] VENOUS CORD GAS (06/10/2019 4:14 AM CDT) VENOUS BASE EXCESS, -9.0 mEq/L [facility] VENOUS PH, CORD 7.15 (L) 7.25 - 7.45 [facility] VENOUS PC02, CORD 61 (H) 27 - 49 mmHg [facility] VENOUS PO2, CORD 19 17 - 41 mmHg [facility] VENOUS BICARBONATE, 21 12 - 29 mEq/L [facility] Specimen Blood - VENOUS Performing Organization Address [facility] Phone Number [facility] CLIA: [id number], [address] [place] [address] ARTERIAL CORD GAS (06/10/2019 4:14 AM CDT) BASE EXCESS, CORD -3.1 mEq/L [facility] AC PH, CORD (BEAKER) 7.38 7.18 - 7.38 [facility] PC02, CORD 37 32 - 66 mmHg [facility] PO2, CORD 16 10 - 30 mmHg [facility] BICARBONATE, CORD 21 17 - 27 mEq/L [facility] Specimen Blood - VENOUS Performing Organization Address [facility] Phone Number [facility] CLIA: [id number], [address] [place] [address] ADC, CLC OR LCC ONLY - HIV TYPE 1 AND 2 ANTIBODY SCREEN WITH P24 (06/10/2019 3: 32 AM CDT) HIV 1/2 AG/AB NON-REACTIVE Nonreactive [facility] Specimen Blood - WRIST, LEFT Performing Organization Address [facility] Phone Number [facility] CLIA: [id number], [address] [place] [address] CBC WITH DIFFERENTIAL (06/10/2019 3:32 AM CDT) WBC 10.96 4.30 - 11.10 [facility] 10*3/L HOSPITAL LABORATORY RBC 4.16 3.93 - 5.25 [facility] 10*6/L HOSPITAL LAB[facility] HGB 12.1 11.6 - 15.0 [facility] g/dL HOSPITAL LAB[facility]ORY HCT 37.7 35.7 - 45.2 % [facility] MCV 90.6 80.6 - 95.5 fL [facility] MCH 29.1 25.9 - 32.8 pg [facility] MCHC 32.1 31.6 - 35.1 [facility] g/dL [facility] RDW-SD 45.2 39.0 - 49.9 fL [facility] RDW-CV 13.7 12.0 - 15.5 % [facility] PLT 206 166 - 358 [facility] 10*3/L [facility] MPV 12.3 9.5 - 12.9 fL [facility] NRBC/100 WBC 0.0 0.0 - 10.0 /100 [facility] WBCs [facility] NRBC x10^3 <0.01 10*3/L [facility] GRAN MAT (NEUT) % 72.5 % [facility] IMM GRAN % 0.50 % [facility] LYMPH % 18.5 % [facility] MONO % 7.8 % [facility] EOS % 0.5 % [facility] BASO % 0.2 % [facility] GRAN MAT x10^3(ANC) 7.95 (H) 1.88 - 7.09 [facility] 10*3/uL HOSPITAL LABORATORY IMM GRAN x10^3 0.06 0.00 - 0.06 [facility] 10*3/uL HOSPITAL LABORATORY LYMPH x10^3 2.03 1.32 - 3.29 [facility] 10*3/uL HOSPITAL LAB[facility]ORY MONO x10^3 0.85 0.33 - 0.92 [facility] 10*3/uL HOSPITAL LABORATORY EOS x10^3 0.05 0.03 - 0.39 [facility] 10*3/uL HOSPITAL LAB[facility]ORY BASO x10^3 <0.03 0.01 - 0.07 [facility] 10*3/uL HOSPITAL LABORATORY Specimen Blood - WRIST, LEFT Performing Organization Address City/[facility] Phone Number [facility] CLIA: [id number], [address] [place] [address] Type and Screen - ONCE VAN (06/10/2019 3:32 AM CDT) Pathologist [facility] ABO & RH O Positive LAB Comment: Performed at [facility] Laboratory Services - [facility] Blood Bank [address] [place] [phone] Toll Free: [phone] CLIA No. [id number] IAT Negative LAB Comment: Performed at [facility] Laboratory Services - [facility] Blood Bank [address] [place] [phone] Toll Free: [phone] CLIA No. [id number] Specimen Blood - VENOUS Performing Organization Address [facility] Phone Number BLD LAB ADC OR STEFFI ONLY - RPR (06/10/2019 3:32 AM CDT) Pathologist [facility] RPR (Qualitative) NON-REACTIVE Nonreactive [facility]OR[facility] Specimen Blood - WRIST, LEFT Performing Organization Address [facility] Phone Number [facility] CLIA: [id number], [address] [place] [address] Hepatitis B Surface Antigen (06/10/2019 3:32 AM CDT) Pathologist [facility] HBsAg HEPATITIS B Negative [facility] LABORATORY SURFACE ANTIGEN SERVICES NEGATIVE HBsAg 0.04 [facility] LABORATORY Semi-Quantitative SERVICES Specimen Blood - WRIST, LEFT Performing Organization Address City/[facility] Phone Number [facility] LABORATORY SERVICES CLIA: [id number], [address] [place] [address] [facility] Vancomycin Trough Level - Draw within 30 minutes prior to dose. (06/10/2019 3: 32 AM CDT) Pathologist [facility] VANCO TROUGH <5.0 (L) 10.0 - 20.0 ug/mL [facility] LABOR[facility] Specimen Blood - WRIST, LEFT Narrative Performed At Toxic Range:>20 ug/mL [facility] LAB[facility] 15-20 ug/mL is recommended for severe infection or when Vancomycin ANGELINE is greater than or equal to 2. Performing Organization Address [facility] Phone Number [facility] CLIA: [id number], [address] [place] [address] documented in this encounter Visit Diagnoses Diagnosis Liveborn , of beach , born in hospital by vaginal delivery - Primary Morbid obesity with body mass index of 40.0-49.9 Labor and delivery, indication for care Unspecified indication for care or intervention related to labor and delivery, unspecified as to episode of care Normal labor and delivery Normal delivery documented in this encounter Administered Medications Medication Order MAR Action Action Date Dose Rate Site docusate calcium (SURFAK) capsule Given 06/11/2019 7:59 AM CDT 240 mg 240 mg 240 mg, Oral, QDAILYPRN, Starting Sun06/10/19 at 0443, Until Discontinued, Routine, Constipation ibuprofen (IBU) tablet 600 mg Given 06/12/2019 1:13 AM CDT 600 mg 600 mg, Oral, Q6HPRN, Starting Sun06/10/19 at 1602, Until Discontinued, Routine, Pain (scale 1-3) Given 06/11/2019 11:57 AM CDT 600 mg Given 06/11/2019 12:22 AM CDT 600 mg vitamin w/FA (PRENATABS RX) Given 06/11/2019 7:59 AM CDT 1 tablet tablet 1 tablet 1 tablet, Oral, DAILY, First dose on Sun06/10/19 at 0900, Until Discontinued, Routine Given 06/10/2019 4:06 PM CDT 1 tablet Medication Order MAR Action Action Date Dose Rate Site diphenhydrAMINE (BENADRYL) 50 mg New Bag 06/10/2019 5:15 AM CDT 50 mg in NaCl 0.9% (NS) piggyback 50 mg, IV Piggyback, ONCE, 1 dose, Sun06/10/19 at 0515, 50 mL ibuprofen (IBU) tablet 600 mg Given 06/10/2019 4:45 AM CDT 600 mg 600 mg, Oral, Q6HPRN, Starting Sun06/10/19 at 0427, Until Sun06/10/19 at 0443, Routine, Pain (scale 4-6) LR 1000 mL + oxytocin 20 units Given 06/10/2019 4:20 AM CDT 125 mL/hr Left Wrist IV Solution at 125 mL/hr, IV Infusion, ONCE, 1 dose, 8/6/19 at 0530, Routine vancomycin 1 g in NS 200 mL RTU Given 06/10/2019 3:43 AM CDT 1,000 mg Left Wrist IV Piggyback 1,000 mg 1,000 mg, IV Piggyback, Q12H ABX, 2 doses, First dose on Sun06/10/19 at 0345, Last dose on Sun06/10/19 at 1545, Reason for Anti-Infective: Documented Infection, Documented Infection Site: Skin / Soft Tissue, Duration of Therapy: Other (see Comments) documented in this encounter Insurance Payer Benefit Plan Subscriber ID Effective Dates Phone Address Type / Group [place] [facility] [id number] 2018-Pauline calderón [facility] [id number] 2019-Jose [phone] [address] PPO/POS - OUT [id number] [place] [address] documented as of this encounter
[2019-09-24] MEDS ORDERED: NA CHLORIDE 0.9% 1,000 ML ONE (01:37)
[2019-09-24] MEDS ORDERED: FENTANYL CITR 100 MCG/2 ML ONE (02:03)
[2019-09-24 02:07] LABS: Absolute Lymphocytes (CBC) 1.5 K/uL (0.7-4.9); Basophils % 0.5 % (0-1.3); Lymphocytes % 18.6 % (15.3-44.8); MPV 9.7 fL (7.6-11.3); RBC Red Blood Cell Count 4.42 M/uL (3.86-4.86)
[2019-09-24] MEDS ORDERED: SIMETHICONE 80 MG TAB ONE (02:11)
[2019-09-24 02:15] LABS: ALT/SGPT 37 U/L (12-78); AST/SGOT 20 U/L (15-37); Albumin 3.5 g/dL (3.4-5.0); Alkaline Phosphatase 125 U/L (45-117); BUN Blood Urea Nitrogen 15 mg/dL (7-18); Bicarbonate 27 mmol/L (21-32); Bilirubin Direct < 0.1 mg/dL (0-0.2); Bilirubin Total 0.2 mg/dL (0.2-1.0); Glucose Level 87 mg/dL (74-106); Lipase 97 U/L (73-393); Potassium 3.8 mmol/L (3.5-5.1); Protein, Total 6.9 g/dL (6.4-8.2); Sodium Level 140 mmol/L (136-145)
--- NOTE | 2019-09-24 02:58 | EDPHYS ---
Physician Documentation [facility] [place], [place] Name: Candace Mccloud Age: 23 yrs Sex: Female : 1995 Arrival Date: 09/24/2019 Time: 01:16 Bed 7 Private MD: ED Physician Roel Sorto HPI: 09/24 01:59 This 23 yrs old Female presents to ER via Ambulatory with complaints of snw Abdominal Pain. 01:59 The patient presents with abdominal pain abdominal distention. Onset: The snw symptoms/episode began/occurred suddenly, 6 hour(s) ago, and became persistent. The symptoms radiate to right back. Associated signs and symptoms: Pertinent positives: nausea. The symptoms are described as steady. Severity of pain: At its worst the pain was moderate. The patient has experienced a previous episode. The patient has been recently seen by a physician:Kiana rios. 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 - Social history:: Smoking status: Patient/guardian denies using tobacco. - Ebola Screening: : No symptoms or risks identified at this time. ROS: 01:58 Constitutional: Negative for fever, chills, and weight loss, Eyes: Negative for injury, snw pain, redness, and discharge, ENT: Negative for injury, pain, and discharge, Neck: Negative for injury, pain, and swelling, Cardiovascular: Negative for chest pain, palpitations, and edema, Respiratory: Negative for shortness of breath, cough, wheezing, and pleuritic chest pain, : Negative for injury, bleeding, discharge, and swelling, MS/Extremity: Negative for injury and deformity, Skin: Negative for injury, rash, and discoloration, Neuro: Negative for headache, weakness, numbness, tingling, and seizure, Psych: Negative for depression, anxiety, suicide ideation, homicidal ideation, and hallucinations. 01:58 Abdomen/GI: Positive for abdominal pain, abdominal distension. 01:58 Back: Positive for radiated pain, of the right mid back. Exam: 01:57 Constitutional: This is a well developed, well nourished patient who is awake, alert, snw and in no acute distress. Head/Face: Normocephalic, atraumatic. Eyes: Pupils equal round and reactive to light, extra-ocular motions intact. Lids and lashes normal. Conjunctiva and sclera are non-icteric and not injected. Cornea within normal limits. Periorbital areas with no swelling, redness, or edema. ENT: Nares patent. No nasal discharge, no septal abnormalities noted. Tympanic membranes are normal and external auditory canals are clear. Oropharynx with no redness, swelling, or masses, exudates, or evidence of obstruction, uvula midline. Mucous membranes moist. Neck: Trachea midline, no thyromegaly or masses palpated, and no cervical lymphadenopathy. Supple, full range of motion without nuchal rigidity, or vertebral point tenderness. No Meningismus. Chest/axilla: Normal chest wall appearance and motion. Nontender with no deformity. No lesions are appreciated. Cardiovascular: Regular rate and rhythm with a normal S1 and S2. No gallops, murmurs, or rubs. Normal PMI, no JVD. No pulse deficits. Respiratory: Lungs have equal breath sounds bilaterally, clear to auscultation and percussion. No rales, rhonchi or wheezes noted. No increased work of breathing, no retractions or nasal flaring. Back: No spinal tenderness. No costovertebral tenderness. Full range of motion. 01:57 Skin: Warm, dry with normal turgor. Normal color with no rashes, no lesions, and no evidence of cellulitis. MS/ Extremity: Pulses equal, no cyanosis. Neurovascular intact. Full, normal range of motion. Neuro: Awake and alert, GCS 15, oriented to person, place, time, and situation. Cranial nerves II-XII grossly intact. Motor strength 5/5 in all extremities. Sensory grossly intact. Cerebellar exam normal. Normal gait. Psych: Awake, alert, with orientation to person, place and time. Behavior, mood, and affect are within normal limits. 01:57 Abdomen/GI: Inspection: abdomen appears normal, Bowel sounds: normal, Palpation: moderate abdominal tenderness, in the right upper quadrant, Indicators: Mclaughlin's sign is positive. Vital Signs: 01:28 BP 125 / 64; Pulse 75; Resp 18; Temp 98.5(O); Pulse Ox 100% on R/A; Weight 79.83 kg; lp1 Height 5 ft. 0 in. (152.40 cm); Pain 4/10; 02:28 BP 104 / 55; Pulse 76; Resp 16 S; Pulse Ox 100% on R/A; Pain 3/10; cc3 03:12 BP 125 / 69; Pulse 71; Resp 15 S; Pulse Ox 99% on R/A; Pain 2/10; cc3 01:28 Body Mass Index 34.37 (79.83 kg, 152.40 cm) lp1 MDM: 01:35 Patient medically screened. snw 02:59 Data reviewed: vital signs, nurses notes. Data interpreted: Pulse oximetry: on room air snw is 100 %. Interpretation: normal. Counseling: I had a detailed discussion with the patient and/or guardian regarding: the historical points, exam findings, and any diagnostic results supporting the discharge/admit diagnosis, lab results, the need for outpatient follow up, to return to the emergency department if symptoms worsen or persist or if there are any questions or concerns that arise at home. Special discussion: Based on the patient's Hx, exam, and Dx evaluation, there is no indication for emergent surgery or inpatient Tx. It is understood by the patient/guardian that if the Sx's persist or worsen they need to return immediately for re-evaluation. Based on the history and exam findings, there is no indication for further emergent testing or inpatient evaluation. I discussed with the patient/guardian the need to see the general surgeon for further evaluation of the symptoms. I discussed with the patient/guardian the need to see the primary care provider for further evaluation of the symptoms. 09/24 01:34 Order name: Basic Metabolic Panel; Complete Time: 02:54 snw 09/24 01:34 Order name: CBC with Diff; Complete Time: 02:54 snw 09/24 01:34 Order name: Creatinine for Radiology; Complete Time: 02:54 snw 09/24 01:34 Order name: Hepatic Function; Complete Time: 02:54 snw 11/20 01:34 Order name: Lipase; Complete Time: 02:54 snw 09/24 02:03 Order name: Flu snw 09/24 01:34 Order name: IV Saline Lock; Complete Time: 01:48 snw 09/24 01:34 Order name: Labs collected and sent; Complete Time: 01:48 snw Administered Medications: 01:45 Drug: NS 0.9% 1000 ml Route: IV; Rate: 1 bolus; Site: right antecubital; cc3 03:00 Follow up: Response: No adverse reaction; IV Status: Completed infusion; IV Intake: cc3 1000ml 02:00 Drug: fentaNYL (PF) 25 mcg {Note: RASS 0.} Route: IVP; Site: right antecubital; cc3 03:15 Follow up: Response: No adverse reaction; Pain is decreased; RASS: Alert and Calm (0) cc3 02:10 Drug: Simethicone 240 mg Route: PO; cc3 03:15 Follow up: Response: No adverse reaction; Pain is decreased cc3 Disposition: 07:49 Co-signature as Attending Physician, Roel Sorto MD I agree with the assessment and tw4 plan of care. Disposition: 09/24/19 02:57 Discharged to Home. Impression: Upper abdominal pain, unspecified. - Condition is Stable. - Discharge Instructions: Abdominal Pain, Adult, Biliary Colic, Adult, Colic, Fat and Cholesterol Restricted Diet, Cholelithiasis, Rehydration, Adult. - Prescriptions for Carafate 1 gram Oral Tablet - take 1 tablet by ORAL route 4 times per day take on an empty stomach, beginning on waking and last dose at bedtime; 100 tablet. promethazine 25 mg Oral Tablet - take 1 tablet by ORAL route every 6 hours As needed; 20 tablet. - Family Work Release, Medication Reconciliation Form, Thank You Letter, Antibiotic Education, Prescription Opioid Use form. - Follow up: Private Physician; When: 2 - 3 days; Reason: Recheck today's complaints, Continuance of care, Re-evaluation by your physician. Follow up: Emergency Department; When: As needed; Reason: Worsening of condition. Signatures: Dispatcher [employer] EDMS Tiffanie López, IRMA-C EMT-Csnw Darlin Saxena, RN RN lp1 Roel Sorto MD MD tw4 La Mcfarland cc3 Corrections: (The following items were deleted from the chart) 03:19 02:57 09/24/2019 02:57 Discharged to Home. Impression: Upper abdominal pain, cc3 unspecified. Condition is Stable. Forms are Medication Reconciliation Form, Thank You Letter, Antibiotic Education, Prescription Opioid Use. Follow up: Private Physician; When: 2 - 3 days; Reason: Recheck today's complaints, Continuance of care, Re-evaluation by your physician. Follow up: Emergency Department; When: As needed; Reason: Worsening of condition. snw
--- NOTE | 2019-09-24 02:58 | ER ---
Nurse's Notes [facility] Name: Candace Mccloud Age: 23 yrs Sex: Female : 1995 Arrival Date: 09/24/2019 Time: 01:16 Bed 7 Private MD: Diagnosis: Upper abdominal pain, unspecified Presentation: 09/24 01:24 Presenting complaint: Patient states: Epigastric pain radiating to back that began at lp1 2330 tonight; States hx of gallstones;. Transition of care: patient was not received from another setting of care. Onset of symptoms was September 24, 2019. Risk Assessment: Do you want to hurt yourself or someone else? Patient reports no desire to harm self or others. Initial Sepsis Screen: Does the patient meet any 2 criteria? No. Patient's initial sepsis screen is negative. Does the patient have a suspected source of infection? No. Patient's initial sepsis screen is negative. Care prior to arrival: None. 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 - Social history:: Smoking status: Patient/guardian denies using tobacco. - Ebola Screening: : No symptoms or risks identified at this time. Screenin:29 Abuse screen: Denies threats or abuse. Denies injuries from another. Nutritional lp1 screening: No deficits noted. Tuberculosis screening: No symptoms or risk factors identified. Fall Risk None identified. Assessment: 01:30 General: Appears in no apparent distress. comfortable, Behavior is calm, cooperative, cc3 appropriate for age. Pain: Complains of pain in epigastric. Neuro: Level of Consciousness is awake, alert, obeys commands, Oriented to person, place, time, situation, Appropriate for age. Cardiovascular: Denies chest pain, Heart tones S1 S2 present Capillary refill < 3 seconds in bilateral fingers Patient's skin is warm and dry. Respiratory: Airway is patent Respiratory effort is even, unlabored, Respiratory pattern is regular, symmetrical, Breath sounds are clear bilaterally. GI: Abdomen is round non-distended, Bowel sounds present X 4 quads. Abd is soft and non tender X 4 quads. : No signs and/or symptoms were reported regarding the genitourinary system. EENT: No signs and/or symptoms were reported regarding the EENT system. Derm: Skin is intact, is healthy with good turgor, Skin is pink, warm \T\ dry. normal. Musculoskeletal: Circulation, motion, and sensation intact. Range of motion: intact in all extremities. 02:29 Reassessment: Patient appears in no apparent distress at this time. Patient and/or cc3 family updated on plan of care and expected duration. Pain level reassessed. Patient is alert, oriented x 3, equal unlabored respirations, skin warm/dry/pink. 03:15 Reassessment: Patient appears in no apparent distress at this time. Patient and/or cc3 family updated on plan of care and expected duration. Pain level reassessed. Patient is alert, oriented x 3, equal unlabored respirations, skin warm/dry/pink. ALLYSSA Moreno discharged the patient home with prescriptions given. IV cannula removed and patient left ER vitally stable and ambulatory with her family. No valuables left in the patient's room. Patient denies pain at this time. Patient states feeling better. Patient states symptoms have improved. Vital Signs: 01:28 BP 125 / 64; Pulse 75; Resp 18; Temp 98.5(O); Pulse Ox 100% on R/A; Weight 79.83 kg; lp1 Height 5 ft. 0 in. (152.40 cm); Pain 4/10; 02:28 BP 104 / 55; Pulse 76; Resp 16 S; Pulse Ox 100% on R/A; Pain 3/10; cc3 03:12 BP 125 / 69; Pulse 71; Resp 15 S; Pulse Ox 99% on R/A; Pain 2/10; cc3 01:28 Body Mass Index 34.37 (79.83 kg, 152.40 cm) lp1 ED Course: 01:16 Patient arrived in ED. jg7 01:24 Tiffanie López FNP-C is [facility]. snw 01:24 Roel Sorto MD is Attending Physician. snw 01:28 Triage completed. lp1 01:28 Arm band placed on. lp1 01:30 La Mcfarland is Primary Nurse. cc3 01:30 Patient has correct armband on for positive identification. Placed in gown. Bed in low cc3 position. Call light in reach. Side rails up X2. Pulse ox on. NIBP on. 01:45 Inserted saline lock: 20 gauge in right antecubital area, using aseptic technique. cc3 Blood collected. 02:11 Flu and/or RSV swab sent to lab. rr5 03:15 No provider procedures requiring assistance completed. IV discontinued, intact, cc3 bleeding controlled, No redness/swelling at site. Pressure dressing applied. Administered Medications: 01:45 Drug: NS 0.9% 1000 ml Route: IV; Rate: 1 bolus; Site: right antecubital; cc3 03:00 Follow up: Response: No adverse reaction; IV Status: Completed infusion; IV Intake: cc3 1000ml 02:00 Drug: fentaNYL (PF) 25 mcg {Note: RASS 0.} Route: IVP; Site: right antecubital; cc3 03:15 Follow up: Response: No adverse reaction; Pain is decreased; RASS: Alert and Calm (0) cc3 02:10 Drug: Simethicone 240 mg Route: PO; cc3 03:15 Follow up: Response: No adverse reaction; Pain is decreased cc3 Intake: 03:00 IV: 1000ml; Total: 1000ml. cc3 Outcome: 02:57 Discharge ordered by . snw 03:15 Discharged to home ambulatory, with family. cc3 03:15 Condition: stable 03:15 Discharge instructions given to patient, Instructed on discharge instructions, follow up and referral plans. medication usage, Demonstrated understanding of instructions, follow-up care, medications, Prescriptions given X 2. 03:19 Patient left the ED. cc3 Signatures: Tiffanie López FNP-C [employer]'-Csnw Darlin Saxena RN RN lp1 La Mcfarland cc3 Gurpreet Rodrigez RN RN rr5 Flakita Kraus jg7 Corrections: (The following items were deleted from the chart) 02:51 02:28 BP 104 / 55; Pulse 76bpm; Resp 16bpm; Spontaneous; Pulse Ox 100% RA; cc3 cc3
[2019-09-24 03:31] VITALS: TEMP 98.5; O2SAT 100
[2019-09-24 03:32] VITALS: BP 104/55
== END 2019-09-24 03:19 | disposition home or self-care (01) ==
LOC: ER 01:12
DX: R10.11 Right upper quadrant pain (principal); Z88.1 Allergy status to other antibiotic agents; Z88.2 Allergy status to sulfonamides; Z91.040 Latex allergy status
CPT/HCPCS: 96361; 85025; 80048; 36415; 80076; 83690; 87804 ×2; 96374; 99284; J3010; J7030

== ENCOUNTER 2023-05-01 18:38 | Emergency (ER) | payer OTHER, BC ==
--- OUTSIDE RECORDS SUMMARY | 2023-05-01 18:55 | XMS REPORT | Continuity of Care Document ---
:1995 Author Organization [facility] t Address [address] [place] [address] [place] [id number] Care Team Providers Name Role Phone FAUSTO WATSON Primary Care Physician Unavailable Zoey Hare Attending Clinician Doctor Unassigned, [place] Attending Clinician Unavailable Slick Laughlin DO Attending Clinician AMANDA MATA Attending Clinician Unavailable FAUSTO WATSON Attending Clinician Unavailable RADIOLOGY Attending Clinician Unavailable Amanda Mata PA-C Attending Clinician Fausto Watson MD Attending Clinician Pob, [facility] Main Attending Clinician Unavailable YESENIA PRESTON Attending Clinician Unavailable YESENIA PRESTON Admitting Clinician Unavailable Fausto Watson MD Admitting Clinician Payers Payer Name Policy Type Policy Number Effective Date Expiration Date S ource [place] - [id number] 2019 OUT OF STATE 00:00:00 RUST [id number] 2018 2019 00:00:00 00:00:00 Problems Condition Condition Condition Status Onset Resolution Last Treating Co mments Source Name Details Category Date Date Treatment Clinician Date Abnormal Abnormal Disease Active 2018-11 Unive rs liver liver 0-07 ity of function function 00:00: [place] test test 00 Medical Branch Multiple Multiple Disease Active 2018-11 Unive rs thyroid thyroid 0-07 ity of nodules nodules 00:00: [place] [facility] Labor and Labor and Disease Active Uni vers delivery, delivery, 8-06 [place] indication [place] 00:[place] for care 00 Medica l Branch Normal Normal Disease Active Univers labor and labor and 8-06 ity of delivery delivery 00:00: Medical [facility] Morbid Morbid Disease Active Univers obesity obesity 5-09 [place] of with body with body 00:[place] mass index mass index 00 Me dical of of Branch 40.0-49.9 40.0-49.9 Complete Complete Disease Active 2017-11 Unive rs miscarriag miscarriag 0-19 it y of e e 00:00: Medical Branch Sofia' Sofia' Disease Active Overview : Univers s s 07-16 Formattin ity of thyroiditi thyroiditi 00:00: g of this [place] s s 00 note Medical might be Branch different from the original. Thyroglob ulin antibody positive 07/2018 Thyroid Thyroid Disease Active Overview: Univ ers antibody antibody 07-16 Thyroglob ity of positive positive 00:00: ulin 00 antibody Medical positive Branch 07/2018 B12 B12 Disease Active Univers deficiency deficiency 911 it y of 00:00: Medical Branch Low HDL Low HDL Disease Active Univers (under 40) (under 40) 9-11 it y of 00:00: Medical Branch Chronic Chronic Disease Active Univers back pain back pain 8-13 ity of 00:00: Medical Branch Bilateral Bilateral Disease Active Uni vers hip pain hip pain 8-13 ity of 00:00: [place] 00 Medical Branch Obesity Obesity Disease Active Univers (BMI (BMI 8-13 ity of 30-39.9) 30-39.9) 00:00: Medical Branch Liveborn Liveborn Disease Active 2015-11 Unive rs infant, of , of 1-25 it y [place] , , 00 Me dical born in born in [facility] by vaginal by vaginal delivery delivery Penicillin Penicillin Disease Active 2015-11 U nivers allergy allergy 1-23 ity of 00:00: [place] [facility] Latex Latex Disease Active 2015-11 Univers allergy allergy 11-27 ity of status status 00:00: Medical Branch Latex Latex Disease Active 2015-11 Univers allergy allergy 11-27 ity of status status 00:00: Medical Branch Immune to Immune to Disease Active Uni vers rubella rubella 04-05 ity of 00:00: Medical Branch Immune to Immune to Disease Active Uni vers varicella varicella 04-05 ity of 00:00: Medical Branch Atypical Atypical Disease Active Overview: Un joseph squamous squamous -18 Formattin ity of cells of cells of 00:00: g of this [place] as undetermin undetermin 00 note Me dical ed ed might be Branch significan significan different ce (ASCUS) ce (ASCUS) from the on on original. Papanicola Papanicola Repeat 1 ou smear ou smear year of cervix of cervix History of History of Disease Active U nivers cervical cervical 11-13 ity of dysplasia dysplasia 00:[place]: [place] [facility] [place] Anxiety Anxiety Disease Active Univers ity of [facility] Allergies, Adverse Reactions, Alerts Allergy Allergy Status Severity Reaction(s) Onset Inactive Treating Comm ents Source Name Type Date Date Clinician Morphine Propensi Active Other - See 2020-11 Uncontro l Univers ty to comments 0-05 lable ity of adverse 00:00: shaking [place] reaction Medical s Branch MORPHINE DRUG Active Other-Cmnt 2020-11 Univ ers INGREDI 0-05 ity of 00:00: Medical Branch VANCOMYC DRUG Active Hives Univers IN INGREDI 8-06 ity of 00:00: [place] [facility] Vancomyc Propensi Active Hives Univer s in ty to 8-06 ity of adverse 00:00: [place] reaction Medical s Branch Adhesive Propensi Active Rash 2017-11 Univer s Tape-Windy ty to 1-27 ity of icones adverse 00:00: [place] reaction 00 Medical s Branch ADHESIVE DRUG Active Med Rash 2017-11 Univers TAPE-WINDY 1-27 ity of ICONES 00:00: Medical Branch SULFA Drug Active Rash Univers (SULFONA Class 5-04 ity of MIDE 00:00: [place] ANTIBIOT 00 Medical ICS) Branch Sulfa Propensi Active Swelling Univer s (Sulfona ty to 5-04 ity of mide adverse 00:00: [place] Antibiot reaction 00 Medica l ics) s Branch LATEX DRUG Active Rash Univers INGREDI 4-27 ity of 00:00: [place] 00 Medical Branch Latex Propensi Active Rash Univers ty to 4-27 ity of adverse 00:00: [place] reaction 00 Medical s Branch Amoxicil Propensi Active Swelling Univ ers sven ty to 1-06 ity of adverse 00:00: [place] reaction 00 Medical s Branch AMOXICIL DRUG Active Hives Univers SVEN INGREDI 1-06 ity of 00:00: [place] 00 Medical Branch Social History Social Habit Start Date Stop Date Quantity Comments Source ASSERTION 2018-09-26 [facility] 00:00:00 Medical Branch History [facility] [place] Alcohol Binge Medical Bra nch History [facility] [place] [facility] Alcohol Comment Medical B ranch Exposure to Not sure [facility] SARS-CoV-2 (event) Medica l Branch Alcohol intake 2021-08-09 2021-08-09 .14 /d [facility] 00:00:00 00:00:00 Medical Branch History [facility] 2019-09-29 2019-09-29 2 [place] o [facility] [place] [facility] Alcohol Frequency 00:00:00 00:00:00 Medical Branch History [facility] 2019-09-29 2019-09-29 1 [place] o [facility] [place] [facility] Alcohol Std Drinks 00:00:00 00:00:00 Medica l Branch Tobacco use and 2015-11-10 2015-11-10 Never used [facility] exposure 00:00:00 00:00:00 Medical Branch Sex [birth year] [facility] 00:00:00 00:00:00 Medical Branch Smoking Status Start Date Stop Date Source Never smoker [facility] Medications Ordered Filled Start Stop Current Ordering Indication Dosage Frequency Signature Comments Components Source Medication Medication Date Date Medication? Clinician (SIG) Name Name cefTRIAXone 2020-11- No 1000mg 1,000 mg, Univers (ROCEPHIN) 0- IV ity of 1,000 mg in 04:15: 04:06 [place], [place] NaCl 0.9% 00 :00 ONCE, 1 Medical (NS) 50 mL dose, On Branc h MINI-BAG [facility] 08/09/21 at 2315, Administer over 30 Minutes, 50 mL
Reas on for Anti-Infec tive: Documented Infection< br>Documen shona Infection Site: Urine<br&g t;Duration of Therapy: Other (see Comments) acetaminoph 2020-11- No 1000mg 1,000 mg, Univers en 0-06 10-06 Oral, ONCE ity of (TYLENOL) 01:45: 01:10 NOW, 1 [place] tablet 00 :00 dose, On Medical 1,000 mg [facility] 08/09/21 at 2045, Routine NaCl 0.9% 2020-11- No 1000mL at 999 Uni vers (NS) bolus 0-06 10-06 mL/hr, ity of infusion 01:45: 04:23 1,000 mL, [place] 1,000 mL 00 :00 IV Medical Piggyback, Branch ONCE, 1 dose, On [facility] 08/09/21 at 204, STAT cephALEXin 2020-11- No [id number] 500mg Take 1 Univers 500 mg 0-05 - capsule by ity of capsule 00:00: 04:59 mouth 4 [place] 00 :00 (four) Medical times [place] daily for 7 days. vitamin 2019- Yes [id number] 250ug Take 0.5-1 Univers B-12 500 9-26 tablets by ity o f mcg tablet 00:00: mouth [place] 00 daily. [facility] vitamin 2019-0 Yes [id number] 250ug Take 0.5-1 Univers B-12 500 9-26 tablets by ity o f mcg tablet 00:00: mouth [place] 00 daily. [facility] vitamin 2019- Yes [id number] 250ug Take 0.5-1 Univers B-12 500 9-26 tablets by ity o f mcg tablet 00:00: mouth [place] 00 daily. [facility] vitamin 2019-0 Yes [id number] 250ug Take 0.5-1 Univers B-12 500 9-26 tablets by ity o f mcg tablet 00:00: mouth [place] 00 daily. [facility] vitamin 2019-0 Yes [id number] 250ug Take 0.5-1 Univers B-12 500 9-26 tablets by ity o f mcg tablet 00:00: mouth [place] 00 daily. [facility] vitamin 2019- Yes [id number] 250ug Take 0.5-1 Univers B-12 500 9-26 tablets by ity o f mcg tablet 00:00: mouth [place] 00 daily. Medical Branch vitamin Yes [id number] 250ug Take 0.5-1 Univers B-12 500 9-26 tablets by ity o f mcg tablet 00:00: mouth [place] 00 daily. Medical Branch vitamin 2019 Yes [id number] 250ug Take 0.5-1 Univers B-12 500 9-26 tablets by ity o f mcg tablet 00:00: mouth [place] 00 daily. Medical Branch vitamin Yes [id number] 250ug Take 0.5-1 Univers B-12 500 9-26 tablets by ity o f mcg tablet 00:00: mouth [place] 00 daily. Medical Branch acetaminoph 2019- No Take by Un joseph en 8-08 08-08 mouth. ity of (TYLENOL) 11:56: 00:00 [place] 325 mg Cap 36 :00 Medical Branch 2018-0 Yes [id number] 1{tbl} Take 1 U nivers vitamin 8-08 tablet by ity of w/FA tablet 00:00: mouth [place] 00 daily. Medical Branch docusate Yes [id number] 240mg Take 1 Un joseph calcium 240 8-08 capsule by it y of mg capsule 00:00: mouth [place] 00 daily as Medical needed for Branch Constipati on. ferrous Yes [id number] 325mg Take 1 Uni vers sulfate 325 8-08 tablet by ity of mg (65 mg 00:00: mouth [place] iron) 00 daily. Medical tablet Branch ibuprofen 2018-0 Yes [id number] 600mg Take 1 U nivers 600 mg 8-08 tablet by ity of tablet 00:00: mouth [place] 00 every 6 Medical (six) Branch hours as needed for Pain (scale 1-3) or Pain (scale 4-6) (Pain). Take with food or milk. 2019- Yes [id number] 1{tbl} Take 1 U nivers vitamin 8-08 tablet by ity of w/FA tablet 00:00: mouth [place] 00 daily. Medical Branch docusate Yes [id number] 240mg Take 1 Un joseph calcium 240 8-08 capsule by it y of mg capsule 00:00: mouth [place] 00 daily as Medical needed for Branch Constipati on. ferrous Yes [id number] 325mg Take 1 Uni vers sulfate 325 8-08 tablet by ity of mg (65 mg 00:00: mouth [place] iron) 00 daily. Medical tablet Branch ibuprofen Yes [id number] 600mg Take 1 U nivers 600 mg 8-08 tablet by ity of tablet 00:00: mouth [place] 00 every 6 Medical (six) Branch hours as needed for Pain (scale 1-3) or Pain (scale 4-6) (Pain). Take with food or milk. Yes [id number] 1{tbl} Take 1 U nivers vitamin 8-08 tablet by ity of w/FA tablet 00:00: mouth [place] 00 daily. Medical Branch Yes [id number] 1{tbl} Take 1 U nivers vitamin 8-08 tablet by ity of w/FA tablet 00:00: mouth [place] 00 daily. Medical Branch Yes [id number] 1{tbl} Take 1 U nivers vitamin 8-08 tablet by ity of w/FA tablet 00:00: mouth [place] 00 daily. Medical Branch Yes [id number] 1{tbl} Take 1 U nivers vitamin 8-08 tablet by ity of w/FA tablet 00:00: mouth [place] 00 daily. Medical Branch Yes [id number] 1{tbl} Take 1 U nivers vitamin 8-08 tablet by ity of w/FA tablet 00:00: mouth [place] 00 daily. Medical Branch Yes [id number] 1{tbl} Take 1 U nivers vitamin 8-08 tablet by ity of w/FA tablet 00:00: mouth [place] 00 daily. Medical Branch Yes [id number] 1{tbl} Take 1 U nivers vitamin 8-08 tablet by ity of w/FA tablet 00:00: mouth [place] 00 daily. Medical Branch Yes [id number] 1{tbl} Take 1 U nivers vitamin 8-08 tablet by ity of w/FA tablet 00:00: mouth [place] 00 daily. Medical Branch Yes [id number] 1{tbl} Take 1 U nivers vitamin 8-08 tablet by ity of w/FA tablet 00:00: mouth [place] 00 daily. Medical Branch 2018- Yes [id number] 1{tbl} Take 1 U nivers vitamin 8-08 tablet by ity of w/FA tablet 00:00: mouth [place] 00 daily. Medical Branch docusate Yes [id number] 240mg Take 1 Un joseph calcium 240 8-08 capsule by it y of mg capsule 00:00: mouth [place] 00 daily as Medical needed for Branch Constipati on. ferrous Yes [id number] 325mg Take 1 Uni vers sulfate 325 8-08 tablet by ity of mg (65 mg 00:00: mouth [place] iron) 00 daily. Medical tablet Branch ibuprofen Yes [id number] 600mg Take 1 U nivers 600 mg 8-08 tablet by ity of tablet 00:00: mouth [place] 00 every 6 Medical (six) Branch hours as needed for Pain (scale 1-3) or Pain (scale 4-6) (Pain). Take with food or milk. ibuprofen Yes 600mg 600 mg, Univ ers (IBU) 8 Oral, ity of tablet 600 21:02: Q6HPRN, [place] mg 17 Starting Medical 06/10/19 Branch at 1602, Until Discontinu ed, Routine, Pain (scale 1-3) diphenhydrA 2019- No 50mg 50 mg, IV Univers MINE 06-10 08-06 Piggyback, ity of (BENADRYL) 10:15: 10:45 ONCE, 1 [place] 50 mg in 00 :00 dose, Tue Medica l NaCl 0.9% 06/10/19 at [facility] h (NS) 0515, 50 piggyback mL benzocaine- 2018-0 Yes Topical, Un joseph menthol 8- PRN, ity of (DERMOPLAST 09:43: [place] 20-0.5 % 25 Sun06/10/19 Med ical topical at 0443, Branch spray Until Discontinu ed, Routine, Perineum discomfort HYDROcodone 2018- Yes 1{tbl} 1 tablet, Univers -acetaminop 06-10 Oral, ity of hen (NORCO 09:43: Q6HPRN, [place] 5) 5-325 mg 25 Starting Medi gretta tablet 1 Sun06/10/19 Branc h tablet at 0443, Until Discontinu ed, Routine, Pain (scale 7-10) diphenhydrA Yes 25mg 25 mg, Univ ers MINE 06-10 Oral, ity of (BENADRYL) 09:43: Q6HPRN, [place] tablet 25 25 Starting Medica l mg Sun06/10/19 Branch at 0443, Until Discontinu ed, Routine, Sleep, Itching ondansetron 2018- Yes 4mg 4 mg, Slow Univers (ZOFRAN 06-10 IV Push, ity of (PF)) 09:43: Q8HPRN, [place] injection 4 25 Starting Medi gretta mg Sun06/10/19 Branch at 044, Until Discontinu ed, Routine, Nausea and Vomiting (N/V) docusate Yes 240mg 240 mg, Unive rs calcium 06-10 Oral, ity of (SURFAK) 09:43: QDAILYPRN, [place] capsule 240 25 Starting Medi gretta mg Sun06/10/19 Branch at 0443, Until Discontinu ed, Routine, Constipati on magnesium Yes 30mL 30 mL, Univer s hydroxide 06-10 Oral, ity of (MILK OF 09:43: QDAILYPRN, [place] MAGNESIA) 25 Starting Medica l 400 mg/5 mL Sun06/10/19 Br anch suspension at 442, 30 mL Until Discontinu ed, Routine, Constipati on ibuprofen 2019- No 600mg 600 mg, Uni vers (IBU) 06-10 Oral, ity of tablet 600 09:27: 09:43 Q6HPRN, [place] mg 42 :30 Starting Medical Sun06/10/19 Branch at 0427, Until Sun06/10/19 at 044, Routine, Pain (scale 4-6) vancomycin 2019- No 1000mg 1,000 mg, Univers 1 g in NS 06-10 IV ity of 200 mL RTU 08:45: 09:43 Piggyback, [place] IV 00 :30 Q12H ABX, Medical Piggyback 2 doses, Branch 1,000 mg First dose on Sun06/10/19 at 0345, Last dose on Sun06/10/19 at 1545
Re ason for Anti-Infec tive: Documented Infection< br>Documen shona Infection Site: Skin / Soft Tissue
Duration of Therapy: Other (see Comments) metroNIDAZO 2018- Yes [id number] 500mg Take 1 Univers LE 500 mg 8-05 tablet by ity o f tablet 00:00: mouth [place] 00 every 12 Medical (twelve) Branch hours. metroNIDAZO 2019- No [id number] 500mg Take 1 Univers LE 500 mg 8-05 08-08 tablet by ity of tablet 00:00: 00:00 mouth [place] 00 :00 every 12 Medical (twelve) Branch hours. fluconazole 2019- No [id number] 200mg Take 1 Univers 200 mg 8-05 08-08 tablet by ity of tablet 00:00: 00:00 mouth [place] 00 :00 daily for Medical 1 day. Branch fluconazole 2019- No [id number] 200mg Take 1 Univers 200 mg 8-03 12-07 tablet by ity of tablet 00:00: 04:59 mouth [place] 00 :00 daily for Medical 1 day. Branch fluconazole Yes [id number] 200mg Take 1 Univers (DIFLUCAN) 8-03 tablet by ity of 200 mg 00:00: mouth [place] tablet 00 daily. Medical Branch fluconazole Yes [id number] 200mg Take 1 Univers (DIFLUCAN) 8-03 tablet by ity of 200 mg 00:00: mouth [place] tablet 00 daily. Medical Branch metroNIDAZO 2019- No [id number] 500mg Take 1 Univers LE (FLAGYL) 8-01 10-11 tablet by it y of 500 mg 00:00: 04:59 mouth 2 [place] tablet 00 :00 (two) Medical times Branch daily for 7 days. metroNIDAZO 2019- No [id number] 500mg Take 1 Univers LE (FLAGYL) 8- 08-11 tablet by it y of 500 mg 00:00: 04:59 mouth 2 [place] tablet 00 :00 (two) Medical times Branch daily for 7 days. fluconazole 2019- No [id number] 200mg Take 1 Univers (DIFLUCAN) 8- 08-08 tablet by ity of 200 mg 00:00: 00:00 mouth [place] tablet 00 :00 daily. Medical Branch metroNIDAZO 2019- No [id number] 500mg Take 1 Univers LE (FLAGYL) 06-07 0808 tablet by it y of 500 mg 00:00: 00:00 mouth 2 [place] tablet 00 :00 (two) Medical times Branch daily for 7 days. acetaminoph Yes Take by Uni vers en -27 mouth. ity of (TYLENOL) 17:35: [place] 325 mg Cap 11 Medical Branch acetaminoph Yes Take by Uni vers en 6-27 mouth. ity of (TYLENOL) 17:35: [place] 325 mg Cap 11 Medical Branch acetaminoph Yes Take by Uni vers en 6-27 mouth. ity of (TYLENOL) 17:35: [place] 325 mg Cap 11 [facility] [id number] 2017-11 Yes 1{dose} Take 1 Un joseph carb,glu-FA 0-12 Dose by ity o f -dss-dha 00:00: mouth [place] (CITRANATAL 00 daily. Medica l ASSURE) 35 Branch mg iron-1 mg -50 mg-300 mg combo pack [id number] 2017-11 Yes 1{dose} Take 1 Un joseph carb,glu-FA 0-12 Dose by ity o f -dss-dha 00:00: mouth [place] (CITRANATAL 00 daily. Medica l ASSURE) 35 Branch mg iron-1 mg -50 mg-300 mg combo pack [id number] 2017-11 Yes 1{dose} Take 1 Un joseph carb,glu-FA 0-12 Dose by ity o f -dss-dha 00:00: mouth [place] (CITRANATAL 00 daily. Medica l ASSURE) 35 Branch mg iron-1 mg -50 mg-300 mg combo pack [id number] 2017-11 2019- No 1{dose} Take 1 U nivers carb,glu-FA 0-12 08 Dose by ity of -dss-dha 00:00: 00:00 mouth [place] (CITRANATAL 00 :00 daily. Medica l ASSURE) 35 Branch mg iron-1 mg -50 mg-300 mg combo pack Immunizations Ordered Filled Immunization Date Status Comments [facility] e Immunization Name Name TDAP (ADACEL) 2019-04-03 Completed [facility] 00:00:00 [facility] TDAP (ADACEL) 2019-04-03 Completed University of VACCINE 00:00:00 [facility] TDAP (ADACEL) 2019-04-03 Completed University of VACCINE 00:00:00 [facility] TDAP (ADACEL) 2019-04-03 Completed University of VACCINE 00:00:00 [facility] TDAP (ADACEL) 2019-04-03 Completed University of VACCINE 00:00:00 [facility] TDAP (ADACEL) 2019-04-03 Completed University of VACCINE 00:00:00 [facility] TDAP (ADACEL) 2019-04-03 Completed University of VACCINE 00:00:00 [facility] TDAP (ADACEL) 2019-04-03 Completed University of VACCINE 00:00:00 [facility] TDAP (ADACEL) 2019-04-03 Completed University of VACCINE 00:00:00 [facility] TDAP (ADACEL) 2019-04-03 Completed University of VACCINE 00:00:00 [facility] TDAP (ADACEL) 2019-04-03 Completed University of VACCINE 00:00:00 [facility] TDAP (ADACEL) 2019-04-03 Completed University of VACCINE 00:00:00 [facility] TDAP (ADACEL) 2019-04-03 Completed University of VACCINE 00:00:00 [facility] TDAP (ADACEL) 2019-04-03 Completed University of VACCINE 00:00:00 [facility] TDAP (ADACEL) 2019-04-03 Completed University of VACCINE 00:00:00 [facility] Tdap 2016-07-26 Completed University of 00:00:00 [facility] Influenza Virus 2016-07-26 Completed Universit y of Vaccine Quad IM 3+ 00:00:00 [facility] Tdap 2016-07-26 Completed University of 00:00:00 [facility] Influenza Virus 2016-07-26 Completed Universit y of Vaccine Quad IM 3+ 00:00:00 [facility] Tdap 2016-07-26 Completed University of 00:00:00 [facility] Influenza Virus 2016-07-26 Completed Universit y of Vaccine Quad IM 3+ 00:00:00 [facility] Tdap 2016-07-26 Completed University of 00:00:00 [facility] Influenza Virus 2016-07-26 Completed Universit y of Vaccine Quad IM 3+ 00:00:00 [facility] Tdap 2016-07-26 Completed University of 00:00:00 [facility] Influenza Virus 2016-07-26 Completed Universit y of Vaccine Quad IM 3+ 00:00:00 [facility] Tdap 2016-07-26 Completed University of 00:00:00 [facility] Influenza Virus 2016-07-26 Completed Universit y of Vaccine Quad IM 3+ 00:00:00 [facility] Tdap 2016-07-26 Completed University of 00:00:00 [facility] Influenza Virus 2016-07-26 Completed Universit y of Vaccine Quad IM 3+ 00:00:00 [facility] Tdap 2016-07-26 Completed University of 00:00:00 [facility] Influenza Virus 2016-07-26 Completed Universit y of Vaccine Quad IM 3+ 00:00:00 [facility] Tdap 2016-07-26 Completed University of 00:00:00 [facility] Influenza Virus 2016-07-26 Completed Universit y of Vaccine Quad IM 3+ 00:00:00 [facility] TDAP 2016-07-26 Completed University of 00:00:00 [facility] Influenza Virus 2016-07-26 Completed Universit y of Vaccine Quad IM 3+ 00:00:00 [facility] TDAP 2016-07-26 Completed University of 00:00:00 [facility] Influenza Virus 2016-07-26 Completed Universit y of Vaccine Quad IM 3+ 00:00:00 [facility] Tdap 2016-07-26 Completed University of 00:00:00 [facility] Influenza Virus 2016-07-26 Completed Universit y of Vaccine Quad IM 3+ 00:00:00 [facility] TDAP 2016-07-26 Completed University of 00:00:00 [facility] Influenza Virus 2016-07-26 Completed Universit y of Vaccine Quad IM 3+ 00:00:00 [facility] Tdap 2016-07-26 Completed University of 00:00:00 [facility] Influenza Virus 2016-07-26 Completed Universit y of Vaccine Quad IM 3+ 00:00:00 [facility] Tdap 2016-07-26 Completed University of 00:00:00 [facility] Influenza Virus 2016-07-26 Completed Universit y of Vaccine Quad IM 3+ 00:00:00 [facility] Influenza Virus 2015-09-10 Completed Universit y of Vaccine 00:00:00 [facility] Influenza Virus 2015-09-10 Completed Universit y of Vaccine 00:00:00 [facility] Influenza Virus 2015-09-10 Completed Universit y of Vaccine 00:00:00 [facility] Influenza Virus 2015-09-10 Completed Universit y of Vaccine 00:00:00 [facility] Influenza Virus 2015-09-10 Completed Universit y of Vaccine 00:00:00 [facility] Influenza Virus 2015-09-10 Completed Universit y of Vaccine 00:00:00 [facility] Influenza Virus 2015-09-10 Completed Universit y of Vaccine 00:00:00 [facility] Influenza Virus 2015-09-10 Completed Universit y of Vaccine 00:00:00 [facility] Influenza Virus 2015-09-10 Completed Universit y of Vaccine 00:00:00 [facility] Influenza Virus 2015-09-10 Completed Universit y of Vaccine 00:00:00 [facility] Influenza Virus 2015-09-10 Completed Universit y of Vaccine 00:00:00 [facility] Influenza Virus 2015-09-10 Completed Universit y of Vaccine 00:00:00 [facility] Influenza Virus 2015-09-10 Completed Universit y of Vaccine 00:00:00 [facility] Influenza Virus 2015-09-10 Completed Universit y of Vaccine 00:00:00 [facility] Influenza Virus 2015-09-10 Completed Universit y of Vaccine 00:00:00 [facility] Td 2010-06-10 Completed University of 00:00:00 [facility] Td 2010-06-10 Completed University of 00:00:00 [facility] Td 2010-06-10 Completed University of 00:00:00 [facility] Td 2010-06-10 Completed University of 00:00:00 [facility] Td 2010-06-10 Completed University of 00:00:00 [facility] Td 2010-06-10 Completed University of 00:00:00 [facility] Td 2010-06-10 Completed University of 00:00:00 [facility] Td 2010-06-10 Completed University of 00:00:00 [facility] Td 2010-06-10 Completed University of 00:00:00 [facility] Td 2010-06-10 Completed University of 00:00:00 [facility] Td 2010-06-10 Completed University of 00:00:00 [facility] Td 2010-06-10 Completed University of 00:00:00 [facility] [facility] Completed [facility] 00[facility] Td 2010-06-10 Completed [facility] 00:[facility]00 [facility] Td 2010-06-10 Completed [facility] 00:00:00 [facility] Vital Signs Vital Name Observation Time Observation Value Comments Source Systolic blood 2021-08-10 04:01:00 112 mm[Hg] Univer sity of pressure [facility] Diastolic blood 2021-08-10 04:01:00 65 mm[Hg] Unive rsity of pressure [facility] Heart rate 2021-08-10 04:01:00 86 /min [facility] Respiratory rate 2021-08-10 04:01:00 14 /min [facility] Oxygen saturation in 2021-08-10 04:01:00 98 /min [facility] Arterial blood by [facility] Pulse oximetry Branch Body temperature 2021-08-10 03:01:00 37.22 Mara Univ ersity of [facility] Body height 2021-08-10 00:12:00 152.4 cm [facility] [place] [facility] Body weight 2021-08-10 00:12:00 78.019 kg [facility] BMI 2021-08-10 00:12:00 33.59 kg/m2 [facility] Systolic blood 2020-01-08 19:32:00 116 mm[Hg] Univer sity of pressure [facility] Diastolic blood 2020-01-08 19:32:00 63 mm[Hg] Unive rsity of pressure [facility] Heart rate 2020-01-08 19:32:00 75 /min [facility] Body temperature 2020-01-08 19:32:00 36.72 Mara [facility] ers[facility] Respiratory rate 2020-01-08 19:32:00 18 /min Univ ersity of [facility] Body height 2020-01-08 19:32:00 154.9 cm [facility] Body weight 2020-01-08 19:32:00 82.827 kg [facility] BMI 2020-01-08 19:32:00 34.50 kg/m2 [facility] Systolic blood 2019-12-31 17:20:00 134 mm[Hg] Univer sity of pressure [facility] Diastolic blood 2019-12-31 17:20:00 74 mm[Hg] Unive rsity of pressure [facility] Heart rate 2019-12-31 17:20:00 97 /min [facility] Body temperature 2019-12-31 17:20:00 36.89 Mara Univ ers[facility] Respiratory rate 2019-12-31 17:20:00 18 /min Univ ers[facility] Body height 2019-12-31 17:20:00 152.4 cm [facility] Body weight 2019-12-31 17:20:00 81.194 kg [facility] BMI 2019-12-31 17:20:00 34.96 kg/m2 Universi ty of [facility] Systolic blood 2019-07-10 20:48:00 114 mm[Hg] Univer sity of pressure [facility] Diastolic blood 2019-07-10 20:48:00 72 mm[Hg] Unive rsity of pressure [facility] Heart rate 2019-07-10 20:48:00 70 /min [facility] Body temperature 2019-07-10 20:48:00 36.83 Mara Univ ers[facility] Respiratory rate 2019-07-10 20:48:00 18 /min Univ ers[facility] Body height 2019-07-10 20:48:00 152.4 cm [facility] Body weight 2019-07-10 20:48:00 82.101 kg [facility] BMI 2019-07-10 20:48:00 35.35 kg/m2 [facility] Systolic blood 2019-06-12 12:23:00 101 mm[Hg] Univer sity of pressure [facility] Diastolic blood 2019-06-12 12:23:00 52 mm[Hg] Unive rsity of pressure [facility] Heart rate 2019-06-12 12:23:00 61 /min [facility] Body temperature 2019-06-12 12:23:00 36.67 Mara [facility] Respiratory rate 2019-06-12 12:23:00 16 /min Univ ersity of [facility] Oxygen saturation in 2019-06-12 12:23:00 100 /min [facility] Arterial blood by [facility] Pulse oximetry Branch Body height 2019-06-10 08:14:00 152.4 cm [facility] Body weight 2019-06-10 08:14:00 94.348 kg [facility] BMI 2019-06-10 08:14:00 40.62 kg/m2 [facility] Systolic blood 2019-06-05 19:40:00 130 [facility] Diastolic blood 2019-06-05 19:40:00 75 mm[Hg] [facility] Heart rate 2019-06-05 19:40:00 99 /min [facility] Body temperature 2019-06-05 19:40:00 36.89 Mara [facility] Respiratory rate 2019-06-05 19:40:00 18 /min [facility] Body height 2019-06-05 19:40:00 152.4 cm [facility] Body weight 2019-06-05 19:40:00 94.348 kg [facility] BMI 2019-06-05 19:40:00 40.62 kg/m2 [facility] Procedures Procedure Date / Time Performing Clinician Source Performed XR CHEST 1 VW 2021-08-10 01:41:53 Zoey García [facility] POCT TEST 2021-08-10 01:13:00 Zoey García [facility] LACTIC ACID WHOLE BLOOD 2021-08-10 01:09:00 Zoey García [facility] FREE T4 2021-08-10 01:08:00 Zoey García [facility] THYROID STIMULATING 2021-08-10 01:08:00 Zoey García [facility] HORMONE [facility] COMP. METABOLIC PANEL 2021-08-10 01:08:00 Zoey [facility] ([id number]) [facility] CBC WITH DIFF 2021-08-10 01:08:00 Zoey García [facility] URINALYSIS 2021-08-10 01:07:00 Zoey García [facility] COVID-19 (ID NOW RAPID 2021-08-10 01:07:00 Zoey García [facility] TESTING) Medical Branch NOTICE OF PRIVACY 2021-08-09 23:50:20 Doctor Unassigned, No [facility] PRACTICES Name Medical Branch CONSENT/REFUSAL FOR 2021-08-09 23:50:00 [facility]AT[facility] Name Medical Branch AUTHORIZATION FOR 2021-02-20 05:01:00 Doctor Unassigned, No [facility] RELEASE OF PHI Name Medical Branch ASSIGNMENT OF BENEFITS 2019-12-31 16:42:03 Doctor Unassigned, No [facility] Branch POCT TEST 2019-12-31 00:00:00 Fausto Watson [facility] CBC WITH DIFFERENTIAL 2019-06-11 09:43:00 Fausto Watson [facility] VENOUS CORD GAS 2019-06-10 09:14:00 Fausto Watson [facility] VANCOMYCIN TROUGH 2019-06-10 08:32:00 Fausto Watson [facility] CBC WITH DIFFERENTIAL 2019-06-10 08:32:00 Fausto Watson [facility] HEPATITIS B SURFACE 2019-06-10 08:32:00 Fausto Watson [facility] ANTIGEN Medical Branch TYPE AND SCREEN 2019-06-10 08:32:00 Fausto Watson [facility] ADC OR STEFFI ONLY - 2019-06-10 08:32:00 Fa[facility] RPR [facility] ADC, CLC OR LCC ONLY - 2019-06-10 08:32:00 Fausto Watson [facility] HIV TYPE 1 AND 2 [facility] Branch ANTIBODY SCREEN WITH P24 GALV ONLY - VAGINAL 2019-06-05 20:14:00 Fausto Watson [facility] PATHOGENS BY DNA PROBE Medical B ranch POCT URINALYSIS W/O 2019-06-05 00:00:00 Fausto Watson [facility] SPECIFIC GRAVITY Medical Branch Encounters Start End Encounter Admission Attending Care Care Encounter Source Date/Time Date/Time Type Type Clinicians Facility Department ID 2021-09-06 Emergency [facility] [id number] Univers 04:17:37 ity of [facility] 2021-08-09 2021-08-09 Emergency [facility] [id number] Univers 19:16:00 23:36:00 Zoey Williamson [id number] [id number] [phone] [facility] 084 Candor 2021-02-20 2021-02-20 Orders Doctor NOLAN [id number] Univers 00:00:00 00:00:00 Only UnassignedNIMO [id number] ity of [place] [facility] [id number] [place] [phone] [facility] 009 Branch 2021-01-25 2021-01-[address] [facility] [id number] Univers 00:00:00 00:00:00 Outreach Slick PICKARD [id number] i ty of [facility] [id number] [phone] Az dical 388 [place] 2021-01-10 2021-01-10 Outpatient R FLIP, [facility] [id number] Univers 13:00:00 13:00:00 AMANDA [facility] 2020-09-23 2020-09-23 Outpatient R FAUSTO WATSON [facility] [id number] Univers 14:30[facility] 2020-08-30 2020-08-30 Outpatient R RADIOLOGY [facility] [id number] Univers 00:00:00 00:00:00 ity [facility] 2020-01-15 2020-01-15 Patient Doctor NOLAN [id number] Univers 00:00:00 00:00:00 Secure Msg NIMO Orellana [id number] ity of [place] [facility] [id number] [place] [phone] [facility] 019 Branch 2020-01-08 2020-01-08 Office Flip [facility] [id number] Univers 13:09:59 13:57:19 Visit Amanda Williamson [id number] [place] [phone] Az dical nal 134 [facility] 2020-01-08 2020-01-08 Outpatient R FLIP [facility] [id number] Univers 13:15:00 13:15:00 AMANDA itmahendra [facility] 2019-12-31 2019-12-31 Initial Fausto Watson [facility] [id number] Univers 10:49:48 13:55:58 Edwin Williamson [id number] ity [id number] [phone] Az dical nal 134 [facility] 2019-12-31 2019-12-31 Help Desk Engineer Jason, Adc Lab Main [facility] 1.2.8 [id number] Univers 11:45:58 12:00:58 Visit Fausto Watson [id number] it[id number] [phone] Az dical nal 353 [facility] 2019-12-31 2019-12-31 Outpatient R FAUSTO WATSON [facility] [id number] Univers 11:00:00 11:00:00 ity of [facility] 2019-12-31 2019-12-31 Orders Doctor FRANCISCO 1.2.840.114 [id number] Univers 00:00:00 00:00:00 Only Unassigned, NIMO [id number] ity of [place] [facility] [id number] [place] [phone] [address] 2019-10-07 2019-10-07 Outpatient R MOHAN [facility] CALEB [id number] Univers 08:44:00 16:45:00 YESENIA riley [facility] 2019-07-10 2019-07-[address] [facility] [id number] Univers 15:17:28 16:22:27 Amanda Williamson [id number] ity [id number] [phone] [address] 2019-06-10 2019-06-12 Hospital Fausto Watson [facility] 1.2.840.114 [id number] Univers 03:04:00 09:06:00 Encounter Edwin Williamson [id number] it[id number] [phone] [address] 2019-06-09 2019-06-09 Case Flip [facility] [id number] Univers 00:00:00 00:00:00 Management Amanda Williamson [id number] [id number] [phone] [address] 2019-06-06 2019-06-06 Telephone Fausto Watson [facility] 1.2.840.114 [id number] 00:00:00 00:00:00 [place] 350.1.13.10 [place] [id number] Professio [phone] [address] 2019-06-06 2019-06-06 Telephone Fausto Watson [facility] 1.2.840.114 [id number] Univers 00:00:00 00:00:00 [place] 350.1.13.10 i [id number] [phone] [address] 2019-06-05 2019-06-05 Routine Fausto Watson [facility] [id number] Univers 13:58:42 15:32:52 [place] 350.1.13.10 ity of [id number] [phone] [address] Results Test Description Test Time Test Comments Results Result Comments Source THYROID STIMULATING HORMONE 2021-08-10 02:15:59 Test Item Value Reference Range Interpretation Comme nts TSH (test code = 7783611498) See_Comment L [Automated message] The system which generated this result transmitted ref erence range: 0.45 - 4.70 mIU /L. The reference range was not u sed to interpret this result as normal/abnormal. Lab Interpretation (test code Abnormal = 87091-1) [facility] [id number] 02:01:54 Test Item Value Reference Range Interpretation Comments FREE T4 (test code = See_Comment [Autom ated message] [id number]) The system [employer] generated this result transmitted ref erence range: 0.78 - 2 .20 ng/dL:. The ref erence range was not u sed to interpret this result as normal/abnor mal. Lab Interpretation (test Normal code = 46194-6) [facility] WITH [id number] 01:50:34 Test Item Value Reference Range Interpretation Comments WBC (test code = See_Comment [Automated 2590-2) message] The sy stem which generated this result transmitted reference range : 4.30 - 11.10 10*3/?L. The reference range was not used to interpret this result as normal/abnormal . RBC (test code = See_Comment [Automated 789-8) message] The sy stem which generated this result transmitted reference range : 3.93 - 5.25 10*6/?L. The reference range was not used to interpret this result as normal/abnormal . HGB (test code = 11.6 g/dL 11.6-15.0 718-7) HCT (test code = 35.9 % 35.7-45.2 4544-3) MCV (test code = 86.1 fL 80.6-95.5 787-2) MCH (test code = 27.8 pg 25.9-32.8 785-6) MCHC (test code = 32.3 g/dL 31.6-35.1 786-4) RDW-SD (test code = 53.2 fL 39.0-49.9 H 65088-6) RDW-CV (test code = 16.9 % 12.0-15.5 H 788-0) PLT (test code = See_Comment [Automated 777-3) message] The sy stem which generated this result transmitted reference range : 166 - 358 10*3/ ?L. The reference r tamy was not used to interpret this result as normal/abnormal . MPV (test code = 11.7 fL 9.5-12.9 95612-9) NRBC/100 WBC (test See_Comment [Automat ed code = 1734519916) message] The system which generated this result transmitted reference range : 0.0 - 10.0 /100 WBCs. The refer ence range was not u sed to interpret th is result as normal/abnormal . NRBC x10^3 (test code <0.01 See_Comment [Auto mated = 9458354722) message] The s ystem which generated this result transmitted reference range : 10*3/?L. The reference range was not used to interpret this result as normal/abnormal . GRAN MAT (NEUT) % 78.8 % (test code = 770-8) IMM GRAN % (test code 0.30 % = 0273029046) LYMPH % (test code = 11.8 % 736-9) MONO % (test code = 8.7 % 5905-5) EOS % (test code = 0.3 % 713-8) BASO % (test code = 0.1 % 706-2) GRAN MAT x10^3(ANC) 7.19 10*3/uL 1.88-7.09 H (test code = 1561555315) IMM GRAN x10^3 (test 0.03 10*3/uL 0.00-0.06 code = 1569483506) LYMPH x10^3 (test code 1.08 10*3/uL 1.32-3.29 L = 731-0) MONO x10^3 (test code 0.79 10*3/uL 0.33-0.92 = 742-7) EOS x10^3 (test code = 0.03 10*3/uL 0.03-0.39 711-2) BASO x10^3 (test code <0.03 0.01-0.07 = 704-7) Lab Interpretation Abnormal (test code = 21673-7) [facility]. METABOLIC PANEL (98398)2021-08-10 01:45:34 Test Item Value Reference Range Interpretation Comments NA (test code = 137 mmol/L 135-145 5339225396) K (test code = 3.8 mmol/L 3.5-5.0 0814762196) CL (test code = 106 mmol/L 98-108 2820607417) CO2 TOTAL (test code = 22 mmol/L 23-31 L 3751830446) AGAP (test code = 2-16 3045704718) BUN (test code = 12 mg/dL 7-23 3254343176) GLUCOSE (test code = 97 mg/dL 70-110 6575288647) CREATININE (test code = 0.84 mg/dL 0.50-1.04 5454255331) TOTAL BILI (test code = 0.9 mg/dL 0.1-1.7 1139522437) CALCIUM (test code = 8.5 mg/dL 8.6-10.6 L 9816010850) T PROTEIN (test code = 6.7 g/dL 6.3-8.2 5030659599) ALBUMIN (test code = 3.8 g/dL 3.5-5.0 0017649933) ALK PHOS (test code = 80 U/L 34-122 5395796083) ALTv (test code = 25 U/L 5-35 1742-6) AST(SGOT) (test code = 23 U/L 13-40 9242352449) eGFR (test code = mL/min/1.73m2 4446128188) MAYANK (test code = MAYANK) Association of Glomerular Filtration Rate (GFR) and Staging of Kidney Disease* + --+ --+ ------+| GFR (mL/min/1.73 m2) ?| With Kidney Damage ?| ?Without Kidney Damage+ --------+ --------+ +| ?>90 ?| ?Stage one ?| ? Normal ?+ ---+ ---+ -------+| ?60-89 ?| ?Stage two ?| ? Decreased GFR ? + --+ --+ ------+| ?30-59 ?| ?Stage three ?| ? Stage three ? + --+ --+ ------+| ?15-29 ?| ?Stage four ? | ? Stage four ?+ ---+ ---+ -------+| ?<15 (or dialysis) ? ?| ?Stage five ? | ? Stage five ?+ ---+ ---+ -------+ *Each stage assumes the associated GFR level has been in effect for at least three months. ?Stages 1 to 5, with or without kidney disease, indicate chronic kidney disease. Notes: Determination of stages one and two (with eGFR >59mL/min/1.73 m2) requires estimation of kidney damage for at least three months as defined by structural or functional abnormalities of the kidney, manifested by either:Pathological abnormalities or Markers of kidney damage (including abnormalities in the composition of the blood or urine or abnormalities in imaging tests). Lab Interpretation Abnormal (test code = 73594-0) [facility] [id number] 01:13:00 Test Item Value Reference Range Interpretation Comments POCT PREG (test code = 1605) negative On board controls acceptable with positive C Line (test code = 3574) POCT PREG LOT # (test code = 3575) [id number] POCT PREG TEST DATE (test 11-04-2022 code = 3576) Lab Interpretation (test code = Normal 93257-9) [facility] [id number] 17:28:00 Test Item Value Reference Range Interpretation Comments POCT PREG (test code = 1605) Negative On board controls acceptable with C Yes Line (test code = 3574) POCT PREG LOT # (test code = 3575) POCT PREG TEST DATE (test code = 3576) Lab Interpretation (test code = Normal 91341-6) [facility] WITH [id number] 10:42:00 Test Item Value Reference Range Interpretation Comments WBC (test code = See_Comment [Automated 5490-2) message] The sy stem which generated this result transmitted reference range : 4.30 - 11.10 10*3/?L. The reference range was not used to interpret this result as normal/abnormal . RBC (test code = See_Comment L [Automated 799-8) message] The sy stem which generated this result transmitted reference range : 3.93 - 5.25 10*6/?L. The reference range was not used to interpret this result as normal/abnormal . HGB (test code = 10.7 g/dL 11.6-15 L 718-7) HCT (test code = 33.9 % 35.7-45.2 L 4544-3) MCV (test code = 91.1 fL 80.6-95.5 787-2) MCH (test code = 28.8 pg 25.9-32.8 785-6) MCHC (test code = 31.6 g/dL 31.6-35.1 786-4) RDW-SD (test code = 45.1 fL 39-49.9 41401-9) RDW-CV (test code = 13.7 % 12-15.5 788-0) PLT (test code = See_Comment [Automated 777-3) message] The sy stem which generated this result transmitted reference range : 166 - 358 10*3/ ?L. The reference r tamy was not used to interpret this result as normal/abnormal . MPV (test code = 12.3 fL 9.5-12.9 63298-9) NRBC/100 WBC (test See_Comment [Automat ed code = 7327815943) message] The system which generated this result transmitted reference range : 0.0 - 10.0 /100 WBCs. The refer ence range was not u sed to interpret th is result as normal/abnormal . NRBC x10^3 (test code <0.01 See_Comment [Auto mated = 8554600410) message] The s ystem which generated this result transmitted reference range : 10*3/?L. The reference range was not used to interpret this result as normal/abnormal . GRAN MAT (NEUT) % 61.5 % (test code = 770-8) IMM GRAN % (test code 0.70 % = 3778740642) LYMPH % (test code = 27.6 % 736-9) MONO % (test code = 8.5 % 5905-5) EOS % (test code = 1.3 % 713-8) BASO % (test code = 0.4 % 706-2) GRAN MAT x10^3(ANC) 4.69 10*3/uL 1.88-7.09 (test code = 7053449888) IMM GRAN x10^3 (test 0.05 10*3/uL 0-0.06 code = 9392832153) LYMPH x10^3 (test code 2.10 10*3/uL 1.32-3.29 = 731-0) MONO x10^3 (test code 0.65 10*3/uL 0.33-0.92 = 742-7) EOS x10^3 (test code = 0.10 10*3/uL 0.03-0.39 711-2) BASO x10^3 (test code 0.03 10*3/uL 0.01-0.07 = 704-7) Lab Interpretation Abnormal (test code = 32087-0) [facility] OR STEFF[facility] ONLY - [id number] 04:50:00 Test Item Value Reference Range Interpretation Comments Lab Interpretation (test code = Normal 81651-9) [facility], CLC OR LCC ONLY - HIV TYPE 1 AND 2 ANTIBODY SCREEN WITH [id number] 20:22:00 Test Item Value Reference Range Interpretation Comments Lab Interpretation (test code = Normal 34546-0) [facility] [id number] 15:11:00 Test Item Value Reference Range Interpretation Comments HBsAg Semi-Quantitative (test code = 5195-3) [facility] - Draw within 30 minutes prior to dose.2019-06-10 12:27:00 Test Item Value Reference Range Interpretation Comments VANCO TROUGH (test code <5.0 10-20 L = 0596577194) MAYANK (test code = MAYANK) Toxic Range:?>20 ug/mL15-20 ug/mL is recommended for severe infection or when Vancomycin ANGELINE is greater than or equal to 2. Lab Interpretation (test Abnormal code = 67479-6) [facility] - ONCE [id number] 10:24:46 Test Item Value Reference Range Interpretation Comments ABO & RH (test code O Positive Performe d at [facility] = 20) Laboratory Serv [facility] [address] [place], [place] [id number] Free: [phone] A No. [id number] IAT (test code = Negative Performed a t [facility] 1185) Laboratory Serv [facility] [place], [place] [address]Toll Free: [phone] A No. [id number] [facility] [id number] 09:59:00 Test Item Value Reference Range Interpretation Comments BASE EXCESS, CORD mEq/L (test code = 4952341823) AC PH, CORD (BEAKER) 7.18-7.38 (test code = 0607426918) PC02, CORD (test code See_Comment [Auto mated message] The = 8503934475) system which g enerated this result transmit shona reference range : 32 - 66 mmHg. The refer ence range was not used to interpret this result as normal/abnormal . PO2, CORD (test code See_Comment [Autom ated message] The = 0246951834) system which g enerated this result transmit shona reference range : 10 - 30 mmHg. The refer ence range was not used to interpret this result as normal/abnormal . BICARBONATE, CORD See_Comment [Automate d message] The (test code = system which ge nerated this 1916404401) result transmit shona reference range : 17 - 27 mEq/L. The refe rence range was not used to interpret this result as normal/abnormal . [facility] CORD [id number] 09:56:00 Test Item Value Reference Range Interpretation Comments VENOUS BASE EXCESS, CORD mEq/L (test code = 2909562205) VENOUS PH, CORD (test 7.25-7.45 L code = 1333347114) VENOUS PC02, CORD (test See_Comment H [Au tomated message] code = 3083881570) The syste m which generated this result transmitted ref erence range: 27 - 49 mmHg. The reference r tamy was not used to interpret this result as normal/abnor mal. VENOUS PO2, CORD (test See_Comment [Aut omated message] code = 4232740739) The syste m which generated this result transmitted ref erence range: 17 - 41 mmHg. The reference r tamy was not used to interpret this result as normal/abnor mal. VENOUS BICARBONATE, CORD See_Comment [A utomated message] (test code = 9924408648) The system which generated this result transmitted ref erence range: 12 - 29 mEq/L. The reference r tamy was not used to interpret this result as normal/abnor mal. Lab Interpretation (test Abnormal code = 53388-4) [facility] WITH [id number] 09:29:00 Test Item Value Reference Range Interpretation Comments WBC (test code = See_Comment [Automated 6690-2) message] The sy stem which generated this result transmitted reference range : 4.30 - 11.10 10*3/?L. The reference range was not used to interpret this result as normal/abnormal . RBC (test code = See_Comment [Automated 789-8) message] The sy stem which generated this result transmitted reference range : 3.93 - 5.25 10*6/?L. The reference range was not used to interpret this result as normal/abnormal . HGB (test code = 12.1 g/dL 11.6-15 718-7) HCT (test code = 37.7 % 35.7-45.2 4544-3) MCV (test code = 90.6 fL 80.6-95.5 787-2) MCH (test code = 29.1 pg 25.9-32.8 785-6) MCHC (test code = 32.1 g/dL 31.6-35.1 786-4) RDW-SD (test code = 45.2 fL 39-49.9 37400-3) RDW-CV (test code = 13.7 % 12-15.5 788-0) PLT (test code = See_Comment [Automated 777-3) message] The sy stem which generated this result transmitted reference range : 166 - 358 10*3/ ?L. The reference r tamy was not used to interpret this result as normal/abnormal . MPV (test code = 12.3 fL 9.5-12.9 14090-3) NRBC/100 WBC (test See_Comment [Automat ed code = 6335935415) message] The system which generated this result transmitted reference range : 0.0 - 10.0 /100 WBCs. The refer ence range was not u sed to interpret th is result as normal/abnormal . NRBC x10^3 (test code <0.01 See_Comment [Auto mated = [id number]) message] The s ystem which generated this result transmitted reference range : 10*3/?L. The reference range was not used to interpret this result as normal/abnormal . GRAN MAT (NEUT) % 72.5 % (test code = 770-8) IMM GRAN % (test code 0.50 % = 6865100585) LYMPH % (test code = 18.5 % 736-9) MONO % (test code = 7.8 % 5905-5) EOS % (test code = 0.5 % 713-8) BASO % (test code = 0.2 % 706-2) GRAN MAT x10^3(ANC) 7.95 10*3/uL 1.88-7.09 H (test code = 6972825484) IMM GRAN x10^3 (test 0.06 10*3/uL 0-0.06 code = 6247729106) LYMPH x10^3 (test code 2.03 10*3/uL 1.32-3.29 = 731-0) MONO x10^3 (test code 0.85 10*3/uL 0.33-0.92 = 742-7) EOS x10^3 (test code = 0.05 10*3/uL 0.03-0.39 711-2) BASO x10^3 (test code <0.03 0.01-0.07 = 704-7) Lab Interpretation Abnormal (test code = 79885-0) [facility] 2019-06-06 17:39:00 Test Item Value Reference Range Interpretation Comments Trichomonas vaginalis (test code = Negative Negative 8530470761) Gardnerella vaginalis (test code = Positive Negative A 6363264194) Tania species (test code = Positive Negative A 1942508986) Lab Interpretation (test code = Abnormal 05420-3) [facility] SPECIFIC [id number] 19:39:00 Test Item Value Reference Range Interpretation Comments POCT PH U (test code = 3254) N/A 5-8 POCT U LEUK EST (test code = N/A Negative - Negative 3263) POCT U NIT (test code = 3262) N/A Negative - Negative POCT U PROT (test code = 3259) Negative Negative - Negative POCT U GLU (test code = 3256) Negative Negative - Negative POCT U KETONE (test code = 3258) N/A Negative - Negative POCT U BLD (test code = 3257) N/A Negative - Negative [facility]"
[2023-05-01] MEDS ORDERED: KETOROLAC 30 MG/ML INJ ONE (19:29)
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
[2023-05-01 20:33] VITALS: BP 119/59; TEMP 98; O2SAT 100
== END 2023-05-01 20:29 | disposition home or self-care (01) ==
LOC: ER 18:38
DX: S16.1XXA Strain of muscle, fascia and tendon at neck level, initial encounter (principal); Z88.1 Allergy status to other antibiotic agents; Z88.2 Allergy status to sulfonamides; Z88.3 Allergy status to other anti-infective agents; Z88.8 Allergy status to other drugs, medicaments and biological substances; Z91.040 Latex allergy status; Z91.048 Other nonmedicinal substance allergy status
CPT/HCPCS: 72125

== ENCOUNTER → 2023-09-03 | Day surgery (SDC) | payer OTHER, BC ==
--- NOTE | 2023-09-03 12:01 | RAD REPORT ---
EXAM DESCRIPTION: US - Guided FNA Non Breast - 09/03/2023 11:38 am CLINICAL HISTORY: Thyroid nodule ICD E 04.1 COMPARISON: CT neck April 2023 TECHNIQUE: Risks, benefits and alternatives of procedure explained to the patient and informed conse nt obtained. Skin and subcutaneous tissues anesthetized with lidocaine. Under sonographic guidance, five 25 gauge needle passes were obtained into the dominant nodule within the right lobe of the thyroid gland. Specimens given to pathology. Patient experienced no immediate complication IMPRESSION: Fine-needle aspiration of a dominant nodule within right lobe of thyroid gland
== END ==
LOC: FNA 10:09
PROVIDERS: ATTEND Otolaryngology Facial Plastic Surgery
PROC: 0GBH3ZX Excision of Right Thyroid Gland Lobe, Percutaneous Approach, Diagnostic (ICD-10-PCS; principal; 2023-09-03)
DX: E04.1 Nontoxic single thyroid nodule (principal)
CPT/HCPCS: 88162

== ENCOUNTER 2023-09-20 06:42 | Day surgery (SDC) | payer OTHER, BC ==
[2023-09-19 12:54] LABS: Specific Gravity 1.016 (1.005-1.030)
[2023-09-20] MEDS ORDERED: CEFAZOLIN SODIUM 1 GM/VIAL ONE ×2 (07:13→09:03)
[2023-09-20] MEDS ORDERED: LIDOCAINE HCL/EPINEPHRINE 20 ML MDV ONE (07:27)
[2023-09-20] MEDS ORDERED: dexAMETHasone 10 MG/ML VIAL ONE (07:28)
[2023-09-20] MEDS ORDERED: FENTANYL CITR 100 MCG/2 ML ONE ×2 (07:28→09:04)
[2023-09-20] MEDS ORDERED: ONDANSETRON 4 MG/2 ML VIAL ONE ×2 (07:29→11:38)
[2023-09-20 13:11] VITALS: TEMP 96.8; O2SAT 96
[2023-09-20] MEDS ORDERED: ACETAMINOPHEN 325 MG TABLET ONE (13:51)
[2023-09-20 13:56] VITALS: BP 98/72
--- NOTE | 2023-09-21 21:20 | OP ---
Date of Procedure: 09/20/2023 Surgeon: ALEX DOCKERY Preoperative Diagnosis: Symptomatic right-sided multinodular goiter. Postoperative Diagnosis: Symptomatic right-sided multinodular goiter. Procedures: 1.Right hemithyroidectomy. 2.Recurrent laryngeal nerve monitoring. Anesthesia: General endotracheal anesthesia was administered. The NIMS endotracheal tube was used f or monitoring of the recurrent laryngeal nerve. Estimated Blood Loss: Between 5 and 10 mL. Specimens: Right thyroid gland with several nodules handed off the field for permanent section. The patient had previous fine-needle aspiration biopsy of the larger nodule, which demonstrated benign n odule negative for malignancy. Findings: Inflamed right thyroid gland with hypervascularity and 2 large nodules palpated. Complications: None. Disposition: Stable. The patient tolerated the procedure well. Indication For Procedure: The patient is a pleasant 27-year-old female, who presented to my outpatie nt clinic in late July for symptomatic nodular thyroid involving the right thyroid lobe with rig ht-sided neck and throat pain with oropharyngeal dysphagia and compression pressure on the airway. U ltrasound revealed a 2.9 cm nodule, which underwent fine-needle aspiration biopsy. Biopsy results we re negative for cancer, but due to symptomatic nature of the patient's complaint, we felt that this w as enough indication to take her to Surgery to remove the right thyroid gland to include the nodule o r nodules involved. She understood. All questions were answered. Risks versus benefits and complic ations were explained in detail and a consent form was signed which was placed in the chart. Description Of Procedure: The patient was transferred from the preoperative holding area to the oper ative suite by Department of Anesthesia, placed on the operating table supine, sedated and intubated in normal fashion. Approximately 10 mL of 1% lidocaine with 1:100,000 epinephrine was infiltrated at the right neck incision site and then the patient was sterilely prepped and draped. Grounding elect rodes were placed and the system was connected to the nerve integrity monitoring system and checked f or accuracy and we were able to get decent stimulation. The patient was then sterilely prepped and d raped. I marked the sternal notch as well as the cricoid and went approximately 2 fingerbreadths or 2 cm abo ve the sternal notch and made an incision from midline approximately 4 cm lateral through the epiderm is down to the subcutaneous layer. I then switched to monopolar electrocautery and dissected to the subplatysmal plane. I then created subplatysmal flaps inferiorly and posteriorly and once down to st rap muscles, I switched over to the ligature which was used to divide the strap muscles in the midlin e. Using balanced retraction, I was able to get down to the thyroid fascia. I divided the thyroid f ascia laterally and expose the lateral border of the thyroid gland, which was very inflamed and hyper vascular. I dissected along the lateral border and was able to roll the thyroid gland medially. It was stuck down at the superior pole, thus we left that at the end to tie off the superior pole vessel s, but I was able to free up the inferior lobe and preserve the inferior parathyroid gland which was easily visualized. The recurrent laryngeal nerve was located laterally and stimulated accordingly an d then I did medial dissection at the isthmus and Feliciano's ligament and was able to clamp and cut usin g the ligature. Once at the superior pole, there was a large nodule located at the superior pole and that was located superior to the superior pole vessels. Thus, I had to medialize the superior nodul e and to locate the superior pole vessels and hugging the thyroid gland, I was able to clamp, ligate, and cut those cup and stick tie of the vessel with 3-0 silk. I then was able to free up the rest of the gland and it was handed off the field and the patient had several nodules with 1 very dominant n odule located superiorly. I then irrigated the wound bed and performed a wet Valsalva. There was no evidence of christoph bleeding, but I did insert Avitene into the wound bed and then I closed the strap muscles with 3-0 Vicryl as well as platysmal muscle closure with 3-0 Vicryl to insert in simple inter rupted fashion. I then inserted a Hamilton drain laterally and secured it with 4-0 Monocryl. I then closed the dermal and epidermal tissue in a subcuticular fashion with 4-0 Monocryl. A pressure dress ing was placed. The patient tolerated the procedure well, was handed back to Department of Anesthesi a in stable condition, where she was subsequently awakened, extubated, and transferred to postoperati ve care unit and discharged home on antibiotic and analgesic medication will follow up in 3 days for drain removal. TYREE/MICHELL Voice ID: [id number] Report ID: [id number]
== END 2023-09-20 13:58 | disposition home or self-care (01) ==
LOC: OR 06:42
PROVIDERS: ATTEND Otolaryngology Facial Plastic Surgery
PROC: 0GTH0ZZ Resection of Right Thyroid Gland Lobe, Open Approach (ICD-10-PCS; principal; 2023-09-20 08:15)
DX: C73 Malignant neoplasm of thyroid gland (principal); D34 Benign neoplasm of thyroid gland; R13.12 Dysphagia, oropharyngeal phase; E06.3 Autoimmune thyroiditis; F41.9 Anxiety disorder, unspecified; E66.9 Obesity, unspecified; Z68.41 Body mass index [BMI] 40.0-44.9, adult; Z88.0 Allergy status to penicillin; Z88.2 Allergy status to sulfonamides; Z88.3 Allergy status to other anti-infective agents; Z88.8 Allergy status to other drugs, medicaments and biological substances; Z91.040 Latex allergy status
CPT/HCPCS: 81025; 88307; 60220; J3010 ×2; J1100; J2405 ×2; J0690 ×2

== ENCOUNTER 2025-07-30 07:07 | Day surgery (SDC) | payer BC ==
[2025-07-30] MEDS ORDERED: FENTANYL CITR 100 MCG/2 ML ONE (07:16)
[2025-07-30] MEDS ORDERED: LIDOCAINE 1% MPF 5 ML VIAL ONE (07:18)
[2025-07-30] MEDS ORDERED: Ringers Lactate 1,000 ML IV ONE (07:19)
[2025-07-30] MEDS ORDERED: SUCCINYLCHOLINE 200 MG/10 ML 200 MG/10 ML SYR IV ONE (07:19)
[2025-07-30] MEDS ORDERED: ROCURONIUM 50 MG/5 ML VIAL IV ONE (07:20)
[2025-07-30] MEDS ORDERED: OXYMETAZOLINE HCL 0.05% 30ML NAS ONE (07:36)
[2025-07-30] MEDS ORDERED: LIDOCAINE HCL/EPINEPHRINE 20 ML MDV ONE (07:36)
[2025-07-30] MEDS ORDERED: DEXMEDETOMIDINE HCL 200 MCG/2 ML VIAL ONE (07:43)
[2025-07-30] MEDS ORDERED: MIDAZOLAM HCL 2 MG/2 ML INJ ONE (08:05)
[2025-07-30] MEDS ORDERED: ONDANSETRON 4 MG/2 ML VIAL ONE (08:24)
[2025-07-30] MEDS ORDERED: BACITRACIN OINTMENT 14 GM TUBE TOP ONE (08:35)
[2025-07-30] MEDS ORDERED: LANO/MINERAL OIL/PETRO 3.5 GM ONE (08:37)
[2025-07-30] MEDS: ALBUTEROL 2.5 MG/3 ML NEB SOL ONE (09:06)
[2025-07-30 10:43] VITALS: BP 124/65; TEMP 97.2; O2SAT 97
--- NOTE | 2025-08-03 14:49 | OP ---
Date of Procedure: 07/30/2025 Surgeon: ALEX DOCKERY Preoperative Diagnoses: 1. Hoarseness. 2. Dyspnea. Postoperative Diagnoses: 1. Paresis of left vocal cord. 2. Hoarseness. 3. Dyspnea. Procedure: Microsuspension direct laryngoscopy with injection of bilateral vocal folds with long-las ting Prolaryn gel calcium hydroxyapatite. Anesthesia: General endotracheal anesthesia was administered. Estimated Blood Loss: None. Specimens: None. Findings: Bilateral vocal cord atrophy. Complications: Small right lower lip bruise secondary to incisor tooth causing friction of the lip d uring the scope. Disposition: Stable. The patient tolerated the procedure well. Indications For Procedure: The patient is a pleasant 29-year-old female, who presented to my outpati ent clinic with hoarseness and dyspnea. Upon examination in my office, the patient had slightly late ralized left vocal cord with paresis. She had a completion left thyroidectomy on 05/28/2025, and it was thought that she still had sluggishness of the left vocal fold. These were indications to bring the patient to operative suite for the above-mentioned procedure. She understood, all questions were answered. Risks versus benefits and complications were explained in detail and a consent form was s igned, which was placed in the chart. Description Of Procedure: The patient was transferred from the preoperative holding area to the oper ative suite by Department of Anesthesia, placed on the operating table supine, sedated and intubated with a small endotracheal tube in the normal fashion. The patient's table was rotated 90 degrees and put into cervical extension. A rigid laryngoscope was introduced into the right oral commissure and directed along the endotracheal tube and suspended from the Adair stand. Once I was able to visualiz e the vocal process, I injected approximately 0.8 mL of Prolaryn long-acting calcium hydroxyapatite g el into the left vocal cord. There was approximately 0.2 mL left over. Thus, I used this to bulk up the right vocal cord by locating the vocal process and I injected slightly lateral and anterior to t he vocal process. The entire 1.0 mL was used. She was then de-suspended from the Adair stand and the laryngoscope was removed. There was a small bruise located on the right lower lip secondary to an i ncisor tooth. We did place a bite guard on the upper teeth during the procedure. She was then trans ferred back to Department of Anesthesia in stable condition and awakened and transferred to postopera tive care unit and discharged home on complete voice rest and to use an ice pack t.i.d. right lower l ip for approximately 10 to 20 minutes for the next 3 days. She will follow up in 2 to 4 weeks or pasquale ner if needed. TYREE/RANI Voice ID: [id number] Report ID: [id number]
== END 2025-07-30 10:42 | disposition home or self-care (01) ==
LOC: OR 07:07
PROVIDERS: ATTEND Otolaryngology Facial Plastic Surgery
PROC: 3E0F8GC Introduction of Other Therapeutic Substance into Respiratory Tract, Via Natural or Artificial Opening Endoscopic (ICD-10-PCS; principal; 2025-07-30 08:00)
DX: J38.02 Paralysis of vocal cords and larynx, bilateral (principal); R49.0 Dysphonia; R06.00 Dyspnea, unspecified
CPT/HCPCS: 31571; J2704; J2003; J7613; J2250; J3010; J1100; J2405; J0330; J7120; L8607